=== PATIENT | male | born 1955 | race Caucasian/White ===

== ENCOUNTER 2018-05-05 12:00 | Inpatient (IN) | payer OTHER ==
[2018-05-04 12:20] VITALS: BMI 36.6
[2018-05-07] MEDS ORDERED: ceFAZolin SODIUM 1 GM VIAL ONE ×3 (07:36→08:57)
[2018-05-07] MEDS ORDERED: LIDOCAINE 1%/EPI 1:100000 (20 ML MULTI DOSE VIAL) ONE (07:36)
[2018-05-07] MEDS ORDERED: GENTAMICIN SO4 80 MG/2 ML VIAL ONE (07:36)
[2018-05-07] MEDS ORDERED: BUPIVACAINE HCL/PF 0.5% (5MG/ML) 10 ML VIAL ONE (07:37)
[2018-05-07] MEDS ORDERED: THROMBIN (BOVINE) 20,000 UNIT VIAL TP ONE ×2 (07:37→10:58)
[2018-05-07] MEDS ORDERED: morphine SULFATE/Preservative Free 0.5 MG/ML (1cc Syringe) ONE (07:40)
[2018-05-07] MEDS ORDERED: VANCOMYCIN 1,000 MG VIAL (RESTRICTED TO ID ONLY) ONE ×2 (07:47→09:00)
[2018-05-07] MEDS ORDERED: MIDAZOLAM HCL 2 MG/2 ML SINGLE DOSE VIAL ONE (07:49)
[2018-05-07] MEDS ORDERED: PROPOFOL 20 ML ONE ×2 (07:49→11:28)
[2018-05-07] MEDS ORDERED: ROCURONIUM BROMIDE 50 MG/5 ML VIAL ONE ×2 (07:49→09:15)
[2018-05-07] MEDS ORDERED: CEFAZOLIN 2 GM in DEXTROSE 5%-WATER - 100 ML IVPB ONE (07:50)
[2018-05-07] MEDS ORDERED: LIDOCAINE HCL/PF 2% SDV 5ML VIAL ONE (07:57)
[2018-05-07] MEDS ORDERED: PROMETHAZINE HCL 25 MG/1 ML VIAL IVPB PRN (08:11)
[2018-05-07] MEDS ORDERED: DEXAMETHASONE SOD PHOSPHATE 4 MG/1 ML VIAL IVPUSH PRN (08:11)
[2018-05-07] MEDS ORDERED: ONDANSETRON 4 MG/2 ML VIAL IVPUSH PRN ×2 (08:11→12:37)
--- NOTE | 2018-05-07 08:14 | HP ---
History & Physical Update - History History: No Change - Physical Physical: No Change - Assessment Assessment: No Change - Plan Plan: No Change (H&P completed on 04/24/[address] Meenu Owens. No new medications or complaints since. Here today for elective L3-5 PLIF.)
[2018-05-07] MEDS ORDERED: LACTATED RINGERS SOLUTION 1,000 ML IV SCH (08:15)
[2018-05-07] MEDS ORDERED: GLYCOPYRROLATE 0.2 MG/1 ML VIAL ONE ×2 (08:37→11:13)
[2018-05-07] MEDS ORDERED: SODIUM CHLORIDE 0.9% P/F 10 ML VIAL IJ ONE (08:57)
[2018-05-07] MEDS ORDERED: ceFAZolin SODIUM 1 GM VIAL IVPB ONE (08:59)
[2018-05-07] MEDS ORDERED: BUPIVACAINE LIPOSOME/PF (EXPAREL) 266 MG/20 ML VIAL NR ONE ×3 (09:00→09:34)
[2018-05-07] MEDS ORDERED: VANCOMYCIN 1,000 MG VIAL (RESTRICTED TO ID ONLY) IVPB ONE (09:02)
[2018-05-07] MEDS ORDERED: LIDOCAINE 1%/EPI 1:100000 (50 ML MULTI DOSE VIAL) NR ONE (09:34)
[2018-05-07] MEDS ORDERED: BUPIVACAINE HCL/PF 0.5% (5MG/ML) 10 ML VIAL IJ ONE (09:34)
[2018-05-07] MEDS ORDERED: THROMBIN (BOVINE) 5,000 UNIT VIAL TP ONE ×2 (09:36)
[2018-05-07] MEDS ORDERED: GELATIN, ABSORBABLE 12-7MM EACH SPONGE TP ONE (11:06)
[2018-05-07] MEDS ORDERED: NEOSTIGMINE METHYLSULFATE 0.5 MG/1 ML - 10 ML MDV ONE (11:14)
[2018-05-07] MEDS ORDERED: ONDANSETRON 4 MG/2 ML VIAL ONE (11:57)
[2018-05-07] MEDS ORDERED: DEXAMETHASONE SOD PHOSPHATE 4 MG/1 ML VIAL ONE (11:57)
[2018-05-07] MEDS ORDERED: diphenhydrAMINE HCL 25 MG CAPSULE (FP) PO PRN (12:37)
[2018-05-07] MEDS ORDERED: LACTATED RINGERS SOLUTION 1,000 ML/1,000 ML INFUS.BAG IV SCH (12:45)
[2018-05-07] MEDS ORDERED: LACTATED RINGERS SOLUTION 1000 ML INFUS.BAG IV ONE (13:15)
[2018-05-07] MEDS ORDERED: HYDROmorphone *PCA* 10MG/50ML DISP.SYRIN PCA ONE (13:24)
[2018-05-07] MEDS: HYDROmorphone *PCA* 10MG/50ML DISP.SYRIN PCA SCH (13:30)
--- NOTE | 2018-05-07 15:30 | OP ---
Operative Note - Note: Operative Date: 05/07/18 Pre-Operative Diagnosis: Chronic low back pain with radiculopathy Operation: L3-L5 laminectomies and interbody cage, arthrodesis with L3-L5 pedicle screws Post-Operative Diagnosis: Same as Pre-op Surgeon: Nikos Watson Time Motion Analyst: Terry Titus Anesthesiologist/REBAR BENDER: Jerrell Emmanuel Anesthesia: General Specimens Removed: Left L3/4, L4/5 discs Estimated Blood Loss (mls): 400 Drains, Volume Out (mls): 200 (fenton/clear) Fluid Volume Replaced (mls): 2,000 Operative Report Dictated: Yes
--- NOTE | 2018-05-07 15:33 | SURG ---
Surgery Repairer Sash And Door Note Repairer Sash And Door: Terry Titus PA-C Date of Service: 05/07/18 Diagnosis: Chronic low back pain with radiculopathy Procedure: L3-L5 laminectomies and interbody cage, arthrodesis with L3-L5 pedicle screws I was present for the entirety of the operative procedure. For further detail, please refer to operative report. Visit type - Case Type Case Type: Scheduled - New patient This patient is new to me today: Yes Date on this admission: 05/07/18
--- NOTE | 2018-05-07 17:28 | PN ---
Physical Exam: SUBJECTIVE: Patient seen and examined in PACU this afternoon. Pain is well controlled with WOUND CARE NURSE. Hasn't passed flatus. Denies numbness, or tingling, chest pain, sob, cough, palpitation, abdominal pain,nausea or vomiting. Fenton in place. Requesting to d/c fenton, wants to stand and stretch. OBJECTIVE: Vital Signs Period Temp Pulse Resp BP Sys/Maldonado Pulse Ox Last 24 Hr 97.0 F-98.7 F 48-72 14-20 75-120/35-75 95-99 GENERAL: Middle aged male, sitting in bed, patient is awake, alert, and fully oriented, in no acute distress. HEAD: Normal with no signs of trauma. EYES: EOM intact, no pallor or icterus. ENT: Ears normal, moist mucous membranes. NECK: Supple. LUNGS: Breath sounds equal, clear to auscultation bilaterally, no wheezes, no crackles, no accessory muscle use. HEART: Regular rate and rhythm, S1, S2 without murmur. ABDOMEN: Soft, nontender, no organomegaly. MUSCULOSKLETAL: dressing applied over the surgical site, THAD drain in place. EXTREMITIES: 2+ pulses, warm, well-perfused, no edema. NEUROLOGICAL: No facial droop. Normal speech, gait not observed. PSYCH: Normal mood, normal affect. SKIN: Warm, dry, normal turgor, no rashes or lesions noted Laboratory Results - last 24 hr 05/07/18 05/07/18 06:45 06:53 Blood Type A POSITIVE A POSITIVE Antibody Screen Negative Active Medications Generic Name Dose Route Start Last Admin Trade Name Freq PRN Reason Stop Dose Admin Amlodipine Besylate 10 mg 05/08/18 10:00 Norvasc - PO DAILY N[facility] Atenolol 50 mg 05/08/18 10:00 Tenormin - PO DAILY [facility] Atorvastatin Calcium 20 mg 05/07/18 22:00 Lipitor - PO HS [facility] Dexamethasone Sodium Phosphate 4 mg 05/07/18 08:11 Decadron Injection - IVPUSH ONCE PRN NAUSEA AND/OR VOMITING Diphenhydramine HCl 12.5 mg 05/07/18 08:11 Benadryl Injection - IVPUSH ONCE PRN FOR ITCHING Diphenhydramine HCl 25 mg 05/07/18 12:37 Benadryl - PO Q6H PRN FOR ITCHING Docusate Sodium 100 mg 05/07/18 14:00 Colace - PO TID [facility] Fentanyl 50 mcg 05/07/18 08:11 Sublimaze Injection - IVPUSH [id number] PRN PAIN-PACU ORDER X 4 DOSES ONLY Ferrous Sulfate 325 mg 05/08/18 10:00 Feosol - PO DAILY [facility] Folic Acid 1 mg 05/08/18 10:00 Folic Acid - PO DAILY [facility] Heparin Sodium (Porcine) 5,000 unit 05/07/18 14:00 Heparin - SQ TID [facility] Hydromorphone HCl 0 mg 05/07/18 08:15 05/07/18 13:30 Dilaudid Application Integration Specialist - WOUND CARE NURSE 05/14/18 08:11 10 mg WOUND CARE NURSE [facility] Administration Protocol Cefazolin Sodium 1 gm/ 50 mls @ 100 mls/hr 05/07/18 18:00 Dextrose IVPB Q8H-IV [facility] Lactated Ringer's 1,000 ml in 1,000 mls @ 125 mls/hr 05/07/18 12:45 Lactated Ringers Solution IV ASDIR [facility] Losartan Potassium 25 mg 05/08/18 10:00 Cozaar - PO DAILY [facility] Mesalamine 1,600 mg 05/07/18 14:00 Asacol Hd - PO TID [facility] Ondansetron HCl 4 mg 05/07/18 08:11 Zofran Injection IVPUSH 05/08/18 13:00 Q4H PRN NAUSEA AND/OR VOMITING Ondansetron HCl 4 mg 05/07/18 12:37 Zofran Injection IVPUSH 05/08/18 12:36 Q6H PRN NAUSEA Pantoprazole Sodium 20 mg 05/07/18 22:00 Protonix - PO BID [facility] Promethazine HCl 12.5 mg 05/07/18 08:11 Phenergan Injection - IVPB Q6H PRN NAUSEA AND/OR VOMITING Sertraline HCl 100 mg 05/08/18 10:00 Zoloft - PO DAILY [facility] ASSESSMENT/PLAN: Patient is a 62 year old male presented to the hospital for an Elective surgery. # Chronic back pain with radiculopathy s/p L3-L5 laminectomies and interbody cage, arthrodesis with L3-L5 pedicle screws POD 0 Surgery uncomplicated, pain tolerated well with WOUND CARE NURSE. EBL 400. Fluid vol replaced 2000 mls Vitas are stable Empirically treated with IV Cefazolin post surgery Fenton continue Heparin sq Clears # HTN Continue Amlodipine 10 mg PO Daily # HLD Continue Atorvastatin 20 mg HS # FEN Can tolerate PO Electrolytes to be repeated in AM Clears # Prophylaxis For DVT: On heparin sq For GI: Not indicated # Code Status: Full Code Illness, Investigation and plan of care explained to the patient. He verbalized understanding. Case discussed with Dr. Paez. Visit type - Emergency Visit Emergency Visit: Yes ED Registration Date: 05/07/18 Care time: The patient presented to the Emergency Department on the above date and was hospitalized for further evaluation of their emergent condition. - New Patient This patient is new to me today: Yes Date on this admission: 05/07/18 - Critical Care Critical Care patient: No
[2018-05-07] MEDS ORDERED: CEFAZOLIN 1 GM in DEXTROSE 5%-WATER - 50 ML IVPB SCH (18:00)
--- NOTE | 2018-05-07 18:11 | PN ---
Teaching Attending Note Name of Resident: Annemarie Lee ATTENDING PHYSICIAN STATEMENT I saw and evaluated the patient. I reviewed the resident's note and discussed the case with the resident. I agree with the resident's findings and plan as documented. SUBJECTIVE: Patient reports back pain controlled with MATHEMATICS EDUCATION PROFESSOR. OBJECTIVE: Vital Signs Period Temp Pulse Resp BP Sys/Maldonado Pulse Ox Last 24 Hr 97.0 F-98.8 F 48-72 14-20 75-130/35-92 95-99 HEART: S1S2, RRR LUNGS: Clear ABDOMEN: Obese, soft, non-tender, non-distended, normal BS EXTREMITIES: No edema Laboratory Results - last 24 hr 05/07/18 05/07/18 06:45 06:53 Blood Type A POSITIVE A POSITIVE Antibody Screen Negative Current Medications Generic Name Dose Route Start Last Admin Trade Name Freq PRN Reason Stop Dose Admin Amlodipine Besylate 10 mg 05/08/18 10:00 Norvasc - PO DAILY [facility] Atenolol 50 mg 05/08/18 10:00 Tenormin - PO DAILY [facility] Atorvastatin Calcium 20 mg 05/07/18 22:00 Lipitor - PO HS [facility] Dexamethasone Sodium Phosphate 4 mg 05/07/18 08:11 Decadron Injection - IVPUSH ONCE PRN NAUSEA AND/OR VOMITING Diphenhydramine HCl 12.5 mg 05/07/18 08:11 Benadryl Injection - IVPUSH ONCE PRN FOR ITCHING Diphenhydramine HCl 25 mg 05/07/18 12:37 Benadryl - PO Q6H PRN FOR ITCHING Docusate Sodium 100 mg 05/07/18 14:00 Colace - PO TID [facility] Fentanyl 50 mcg 05/07/18 08:11 Sublimaze Injection - IVPUSH [id number] PRN PAIN-PACU ORDER X 4 DOSES ONLY Ferrous Sulfate 325 mg 05/08/18 10:00 Feosol - PO DAILY [facility] Folic Acid 1 mg 05/08/18 10:00 Folic Acid - PO DAILY [facility] Heparin Sodium (Porcine) 5,000 unit 05/07/18 14:00 Heparin - SQ TID [facility] Hydromorphone HCl 0 mg 05/07/18 08:15 05/07/18 13:30 Dilaudid Coupon And Bond Collection Clerk - MATHEMATICS EDUCATION PROFESSOR 05/14/18 08:11 10 mg MATHEMATICS EDUCATION PROFESSOR [facility] Administration Protocol Cefazolin Sodium 1 gm/ 50 mls @ 100 mls/hr 05/07/18 18:00 Dextrose IVPB Q8H-IV [facility] Losartan Potassium 25 mg 05/08/18 10:00 Cozaar - PO DAILY [facility] Mesalamine 1,600 mg 05/07/18 14:00 Asacol Hd - PO TID [facility] Ondansetron HCl 4 mg 05/07/18 08:11 Zofran Injection IVPUSH 05/08/18 13:00 Q4H PRN NAUSEA AND/OR VOMITING Ondansetron HCl 4 mg 05/07/18 12:37 Zofran Injection IVPUSH 05/08/18 12:36 Q6H PRN NAUSEA Pantoprazole Sodium 20 mg 05/07/18 22:00 Protonix - PO BID [facility] Promethazine HCl 12.5 mg 05/07/18 08:11 Phenergan Injection - IVPB Q6H PRN NAUSEA AND/OR VOMITING Sertraline HCl 100 mg 05/08/18 10:00 Zoloft - PO DAILY [facility] ASSESSMENT AND PLAN: This is a 62 year old man with a history of HTN, hyperlipidemia who underwent lumbar spine surgery for radiculopathy. 1. Chronic low back pain with radiculopathy - s/p L3-L5 laminectomies and interbody cage, arthrodesis with L3-L5 pedicle screws today - Tolerating clear liquid diet - Pain controlled 2. HTN - Continue Norvasc, Atenolol, Cozaar 3. Hyperlipidemia - Continue Lipitor
--- NOTE | 2018-05-07 18:28 | CONSULT ---
Consultation: ICU consult REQUESTING PROVIDER:Dr Duran Neurosurgery CONSULT REQUEST: We have been asked to medically evaluate this patient for ( post op monitor ). HISTORY OF PRESENT ILLNESS: 62 year old male presented for elective low back surgery L3-L5 , performed By Dr Jessica Duran, pt has along history of low [place] pain radiated to his buttocs and lower ext POD #0 , complain of discofort in surgery sight , denies nay fever, chills, N/V/D/C denies any chest pain , sob, abdominal pain , urinary symptoms did not pass flatus yet on CORE STACKER for pain per surgery team REVIEW OF SYSTEMS: CONSTITUTIONAL: Absent: fever, chills, diaphoresis, generalized weakness, malaise, loss of appetite, weight change HEENT: Absent: rhinorrhea, nasal congestion, throat pain, throat swelling, difficulty swallowing, mouth swelling, ear pain, eye pain, visual changes CARDIOVASCULAR: Absent: chest pain, syncope, palpitations, irregular heart rate, lightheadedness , peripheral edema RESPIRATORY: Absent: cough, shortness of breath, dyspnea with exertion, orthopnea, wheezing, stridor, hemoptysis GASTROINTESTINAL: Absent: abdominal pain, abdominal distension, nausea, vomiting, diarrhea, constipation, melena, hematochezia GENITOURINARY: Absent: dysuria, frequency, urgency, hesitancy, hematuria, flank pain, genital pain MUSCULOSKELETAL: Absent: myalgia, arthralgia, joint swelling, back pain, neck pain SKIN: Absent: rash, itching, pallor HEMATOLOGIC/IMMUNOLOGIC: Absent: easy bleeding, easy bruising, lymphadenopathy, frequent infections ENDOCRINE: Absent: unexplained weight gain, unexplained weight loss, heat intolerance, cold intolerance NEUROLOGIC: Absent: headache, focal weakness or paresthesias, dizziness, unsteady gait, seizure, mental status changes, bladder or bowel incontinence PSYCHIATRIC: Absent: anxiety, depression, suicidal or homicidal ideation, hallucinations. PHYSICAL EXAMINATION Vital Signs - 24 hr 05/07/18 05/07/18 05/07/18 07:03 12:18 12:30 Temperature 97.0 F L 98.7 F Pulse Rate 48 L 69 64 Respiratory 20 14 18 Rate Blood Pressure 120/75 94/35 L 75/43 L O2 Sat by Pulse 97 97 95 Oximetry (%) 12/20/18 12/20/18 12/20/18 12:45 13:00 13:15 Temperature Pulse Rate 62 59 L 58 L Respiratory 16 18 16 Rate Blood Pressure 78/43 L 84/53 L 89/60 L O2 Sat by Pulse 96 98 98 Oximetry (%) 05/07/18 05/07/18 05/07/18 13:30 13:45 14:00 Temperature Pulse Rate 59 L 56 L 55 L Respiratory 18 16 16 Rate Blood Pressure 104/65 102/65 103/60 O2 Sat by Pulse 99 98 98 Oximetry (%) 05/07/18 05/07/18 05/07/18 14:15 14:30 14:45 Temperature Pulse Rate 55 L 55 L 58 L Respiratory 16 16 18 Rate Blood Pressure 106/59 L 102/63 103/55 L O2 Sat by Pulse 98 99 98 Oximetry (%) 05/07/18 05/07/18 05/07/18 15:30 16:00 16:30 Temperature Pulse Rate 72 58 L 58 L Respiratory 14 16 16 Rate Blood Pressure 104/69 109/71 116/72 O2 Sat by Pulse 98 98 98 Oximetry (%) 05/07/18 05/07/18 05/07/18 17:40 17:50 18:02 Temperature 98.8 F 98.8 F Pulse Rate 59 L 61 Respiratory 18 20 Rate Blood Pressure 130/92 104/76 O2 Sat by Pulse 98 98 Oximetry (%) GENERAL: Awake, alert, and fully oriented, in no acute distress. HEAD: Normal with no signs of trauma. EYES: Pupils equal, round and reactive to light, extraocular movements intact, NECK: Normal range of motion, supple LUNGS: Breath sounds equal, clear to auscultation bilaterally. No wheezes, and no crackles. HEART: Regular rate and rhythm, normal S1 and S2 without murmur, rub or gallop. ABDOMEN: Soft, nontender, not distended, normoactive bowel sounds, no guarding, no rebound, MUSCULOSKELETAL: Normal range of motion at all joints. No CVA tenderness.lower back surgey sight sealed and covered with gauze UPPER EXTREMITIES: 2+ pulses, warm, well-perfused. No cyanosis. No clubbing. Cap refill <2 seconds. No peripheral edema. LOWER EXTREMITIES: 2+ pulses, warm, well-perfused. No calf tenderness. No peripheral edema. NEUROLOGICAL: Cranial nerves II-XII intact. Normal speech. PSYCHIATRIC: Cooperative. Good eye contact. Appropriate mood and affect. SKIN: Warm, dry, normal turgor, Laboratory Results - last 24 hr 05/07/18 05/07/18 06:45 06:53 Blood Type A POSITIVE A POSITIVE Antibody Screen Negative Active Medications Generic Name Dose Route Start Last Admin Trade Name Freq PRN Reason Stop Dose Admin Amlodipine Besylate 10 mg 05/08/18 10:00 Norvasc - PO DAILY [facility] Atenolol 50 mg 05/08/18 10:00 Tenormin - PO DAILY [facility] Atorvastatin Calcium 20 mg 05/07/18 22:00 Lipitor - PO HS [facility] Dexamethasone Sodium Phosphate 4 mg 05/07/18 08:11 Decadron Injection - IVPUSH ONCE PRN NAUSEA AND/OR VOMITING Diphenhydramine HCl 12.5 mg 05/07/18 08:11 Benadryl Injection - IVPUSH ONCE PRN FOR ITCHING Diphenhydramine HCl 25 mg 05/07/18 12:37 Benadryl - PO Q6H PRN FOR ITCHING Docusate Sodium 100 mg 05/07/18 14:00 Colace - PO TID [facility] Fentanyl 50 mcg 05/07/18 08:11 Sublimaze Injection - IVPUSH [id number] PRN PAIN-PACU ORDER X 4 DOSES ONLY Ferrous Sulfate 325 mg 05/08/18 10:00 Feosol - PO DAILY [facility] Folic Acid 1 mg 05/08/18 10:00 Folic Acid - PO DAILY [facility] Heparin Sodium (Porcine) 5,000 unit 05/07/18 14:00 Heparin - SQ TID [facility] Hydromorphone HCl 0 mg 05/07/18 08:15 05/07/18 13:30 Dilaudid Broom Builder - CORE STACKER 05/14/18 08:11 10 mg CORE STACKER [facility] Administration Protocol Cefazolin Sodium 1 gm/ 50 mls @ 100 mls/hr 05/07/18 18:00 Dextrose IVPB Q8H-IV [facility] Losartan Potassium 25 mg 05/08/18 10:00 Cozaar - PO DAILY [facility] Mesalamine 1,600 mg 05/07/18 14:00 Asacol Hd - PO TID [facility] Ondansetron HCl 4 mg 05/07/18 08:11 Zofran Injection IVPUSH 05/08/18 13:00 Q4H PRN NAUSEA AND/OR VOMITING Ondansetron HCl 4 mg 05/07/18 12:37 Zofran Injection IVPUSH 05/08/18 12:36 Q6H PRN NAUSEA Pantoprazole Sodium 20 mg 05/07/18 22:00 Protonix - PO BID [facility] Promethazine HCl 12.5 mg 05/07/18 08:11 Phenergan Injection - IVPB Q6H PRN NAUSEA AND/OR VOMITING Sertraline HCl 100 mg 05/08/18 10:00 Zoloft - PO DAILY [facility] ASSESSMENT/PLAN: 62 year old male with h/o HTN , HLD, chronic back pain presented to hospital for elective surgery due to chronic back pain with radiculopathy. #Neuro #Chronic back pain with radiculopathy s/p L3-L5 laminectomies and interbody cage , arthrodesis with L3-L5 pedicle screws * POD# 0 * AAOx3 in NAD * mild discofort in surgey sight * pain control CORE STACKER dilauded on demand * IV fluids D5 1/2 NS * clear liquids * Incentive spirometry * PT * bed rest, early ambulation * monitor drainage * monitor for fever, wbc , H/H * DVTS: SCDS , hep sc Q 8hr * NO GI proph * resume home emds for HTN , HLD, * full code * empiric abx ampicillin one dose * Thank you for the consult * will monitor in ICU 24 [facility] PGY 2 Dispo: We will continue to follow the patient. Thank you for this consultative opportunity. Visit type - Emergency Visit Emergency Visit: No - New Patient This patient is new to me today: Yes Date on this admission: 05/07/18 - Critical Care Critical Care patient: Yes Total Critical Care Time (in minutes): 45 Critical Care Statement: The care of this patient involved high complexity decision making to prevent further life threatening deterioration of the patient 's condition and/or to evaluate & treat vital organ system(s) failure or risk of failure.
[2018-05-07] MEDS ORDERED: DEXTROSE 5%-0.45% SALINE 1,000 ML IV SCH (18:30)
[2018-05-07] MEDS: CEFAZOLIN 1 GM/D5W 1 GM/50 ML BAG IVPB SCH (18:45)
[2018-05-07] MEDS: MESALAMINE 800 MG TABLET.DR PO SCH ×2 (19:44→21:51)
[2018-05-07] MEDS: DOCUSATE SODIUM 100 MG CAPSULE (FP) PO SCH ×2 (19:44→21:40)
[2018-05-07] MEDS: ATORVASTATIN CA 20 MG TABLET (FP) PO SCH (21:41)
[2018-05-07] MEDS: PANTOPRAZOLE 20 MG TABLET (FP) PO SCH (21:42)
[2018-05-07] MEDS: HEPARIN NA (PORCINE) 5,000 UNITS/ML 1ML VIAL SQ SCH ×2 (21:45)
[2018-05-08] MEDS: CEFAZOLIN 1 GM/D5W 1 GM/50 ML BAG IVPB SCH ×3 (01:05→17:43)
[2018-05-08] MEDS ORDERED: HYDROmorphone *PCA* 10MG/50ML DISP.SYRIN PCA ONE ×3 (04:34→21:53)
[2018-05-08] MEDS: HYDROmorphone *PCA* 10MG/50ML DISP.SYRIN PCA SCH ×2 (04:48→14:10)
[2018-05-08] MEDS: MESALAMINE 800 MG TABLET.DR PO SCH ×3 (06:13→21:37)
[2018-05-08] MEDS: HEPARIN NA (PORCINE) 5,000 UNITS/ML 1ML VIAL SQ SCH ×3 (06:14→21:37)
[2018-05-08] MEDS: DOCUSATE SODIUM 100 MG CAPSULE (FP) PO SCH ×3 (06:14→21:38)
[2018-05-08 06:29] LABS: HEMATOCRIT 35.8 % (35.4-49); HEMOGLOBIN 11.7 GM/dL (11.7-16.9); MCHC 32.8 g/dl (32.0-35.9); MEAN CELL VOLUME 91.4 fl (80-96); MEAN PLT VOLUME 7.9 fl (7.5-11.1); PLATELET COUNT 251 K/MM3 (134-434); RBC 3.91 M/mm3 (4.00-5.60); RDW 14.8 % (11.9-15.9); WHITE BLOOD COUNT 10.4 K/mm3 (4.0-10.0)
[2018-05-08 07:06] LABS: ANION GAP 10 MMOL/L (8-16); BLOOD UREA NITROGEN 19 mg/dL (7-18); CALCIUM 8.8 mg/dL (8.5-10.1); CHLORIDE 100 mmol/L (98-107); CO2 22 mmol/L (21-32); CREATININE 1.1 mg/dL (0.55-1.3); GLUCOSE,RANDOM 107 mg/dL (74-106); POTASSIUM 4.7 mmol/L (3.5-5.1); SODIUM 132 mmol/L (136-145)
[2018-05-08] MEDS ORDERED: ACETAMINOPHEN 1000 MG/100 ML VIAL (NON FORMULARY) IVPB PRN ×2 (08:19→08:30)
--- NOTE | 2018-05-08 08:24 | PN ---
Progress Note (short form) - Note Progress Note: POD#1 Pt having pain in his incision/buttock area. No numbness or tingling to lower extremities. No, CP/SOB or nausea. No headaches. Vital Signs Period Temp Pulse Resp BP Sys/Maldonado Pulse Ox Last 24 Hr 97.9 F-98.8 F 55-82 14-20 75-132/35-92 95-99 THAD: 300ml-serosangrenous UOP: 1200ml yellow urine GEN: A&0x3, NAD ABD: soft, non-distended, non-tender Back: inc c/d/i with aquacel Neuro: 5/5dorsi/plantar flexion EHL. +2 DP pulses b/l CBC, BMP /21/18 05:30 //18 05:30 A/p: 62 yo male s/p L3-L5 laminectomies and interbody cage, arthrodesis with L3 -L5 pedicle screws Advanced diet to regular OOB with TLSO brace Continue THAD to bulb suction FLIGHT OPERATIONS COORDINATOR for pain medications, wean as per anesthesia DVT ppx with heparin SQ and SCDs D/w Dr. Mims/covering for
--- NOTE | 2018-05-08 08:27 | PN ---
Progress Note (short form) - Note Progress Note: Post op day#1.S/p L3-L5 Decompression with fusion and interbody cage placement under Ga with spinal duramorph and TLIP block by the surgeon uneventful.P75,BP 120/91 and Spo2 97% on O2 2L NC.Patient stable and c/o pain score of 8-9/10 on Dilaudid VAMP PRESSER although he was sleeping when i saw him.Will continue VAMP PRESSER and also add Ofirmev and Neurontin.Patient also c/o hiccough so will add Reglan ivpb.Will f/u tomorrow.
[2018-05-08] MEDS: METOCLOPRAMIDE HCL INJECTION 10 MG/2 ML VIAL IVPUSH PRN ×2 (08:34→18:46)
[2018-05-08] MEDS ORDERED: RANITIDINE HCL 150 MG TABLET (FP) PO ONE (08:45)
[2018-05-08] MEDS: PANTOPRAZOLE 20 MG TABLET (FP) PO SCH ×2 (09:44→21:37)
[2018-05-08] MEDS: GABAPENTIN 400 MG CAPSULE (FP) PO SCH ×2 (09:44→21:38)
[2018-05-08] MEDS: amLODIPine BESYLATE 10 MG TABLET (FP) PO SCH (09:44)
[2018-05-08] MEDS: ATENOLOL 50 MG TABLET (FP) PO SCH (09:44)
[2018-05-08] MEDS: LOSARTAN POTASSIUM 25 MG TABLET PO SCH (09:44)
[2018-05-08] MEDS: FERROUS SO4 325 MG TABLET (FP) PO SCH (09:44)
[2018-05-08] MEDS: SERTRALINE HCL 50 MG TABLET (FP) PO SCH (09:44)
[2018-05-08] MEDS: FOLIC ACID 1 MG TABLET (FP) PO SCH (09:44)
--- NOTE | 2018-05-08 12:48 | PN ---
Teaching Attending Note Name of Resident: Jon Frederick ATTENDING PHYSICIAN STATEMENT I saw and evaluated the patient. I reviewed the resident's note and discussed the case with the resident. I agree with the resident's findings and plan as documented. SUBJECTIVE: Patient seen and examined in the ICU. Ambulating with PT. Pain seems adequately controlled. No CP or SOB. Intake & Output 05/05/18 05/06/18 05/07/18 05/08/18 23:59 23:59 23:59 23:59 Intake Total 5920 Output Total 1850 1250 Balance 4070 -1250 Last Vital Signs Temp Pulse Resp BP Pulse Ox 98 F 82 18 142/82 98 05/08/18 10:00 05/08/18 10:00 05/08/18 10:00 05/08/18 10:00 05/08/18 09:00 Active Medications Acetaminophen (Ofirmev Injection -) 1,000 mg IVPB Q6H PRN PRN Reason: PAIN LEVEL 7 - 10 Amlodipine Besylate (Norvasc -) 10 mg PO DAILY [facility] Last Admin: 05/08/18 09:44 Dose: 10 mg Atenolol (Tenormin -) 50 mg PO DAILY [facility] Last Admin: 05/08/18 09:44 Dose: 50 mg Atorvastatin Calcium (Lipitor -) 20 mg PO HS [facility] Last Admin: 05/07/18 21:41 Dose: 20 mg Dexamethasone Sodium Phosphate (Decadron Injection -) 4 mg IVPUSH ONCE PRN PRN Reason: NAUSEA AND/OR VOMITING Diphenhydramine HCl (Benadryl Injection -) 12.5 mg IVPUSH ONCE PRN PRN Reason: FOR ITCHING Diphenhydramine HCl (Benadryl -) 25 mg PO Q6H PRN PRN Reason: FOR ITCHING Docusate Sodium (Colace -) 100 mg PO TID [facility] Last Admin: 05/08/18 06:14 Dose: 100 mg Ferrous Sulfate (Feosol -) 325 mg PO DAILY [facility] Last Admin: 05/08/18 09:44 Dose: 325 mg Folic Acid (Folic Acid -) 1 mg PO DAILY [facility] Last Admin: 05/08/18 09:44 Dose: 1 mg Gabapentin (Neurontin -) 400 mg PO BID [facility] Last Admin: 05/08/18 09:44 Dose: 400 mg Heparin Sodium (Porcine) (Heparin -) 5,000 unit SQ TID [facility] Last Admin: 05/08/18 06:14 Dose: 5,000 unit Hydromorphone HCl (Dilaudid Nuclear Plant Operator -) 0 mg SYSTEMS INTEGRATION MANAGER SYSTEMS INTEGRATION MANAGER [facility]; Protocol Stop: 05/14/18 08:11 Last Admin: 05/08/18 04:48 Dose: 10 mg Cefazolin Sodium (Ancef 1 Gm Premixed Ivpb -) 1 gm in 50 mls @ 100 mls/hr IVPB Q8H-IV [facility] Last Admin: 05/08/18 09:35 Dose: 100 mls/hr Losartan Potassium (Cozaar -) 25 mg PO DAILY [facility] Last Admin: 05/08/18 09:44 Dose: 25 mg Mesalamine (Asacol Hd -) 1,600 mg PO TID [facility] Last Admin: 05/08/18 06:13 Dose: 1,600 mg Metoclopramide HCl (Reglan Injection -) 10 mg IVPUSH Q8H PRN PRN Reason: NAUSEA AND/OR VOMITING Last Admin: 05/08/18 08:34 Dose: 10 mg Ondansetron HCl (Zofran Injection) 4 mg IVPUSH Q4H PRN PRN Reason: NAUSEA AND/OR VOMITING Stop: 05/08/18 13:00 Pantoprazole Sodium (Protonix -) 20 mg PO BID [facility] Last Admin: 05/08/18 09:44 Dose: 20 mg Promethazine HCl (Phenergan Injection -) 12.5 mg IVPB Q6H PRN PRN Reason: NAUSEA AND/OR VOMITING Sertraline HCl (Zoloft -) 100 mg PO DAILY [facility] Last Admin: 05/08/18 09:44 Dose: 100 mg GENERAL: Awake, alert, and fully oriented, no acute distress. HEAD: Normal with no signs of trauma. EYES: Pupils equal, round and reactive to light, extraocular movements intact, NECK: Normal range of motion, supple LUNGS: Breath sounds equal, clear to auscultation bilaterally. No wheezes, and no crackles. HEART: Regular rate and rhythm, normal S1 and S2 without murmur, rub or gallop. ABDOMEN: Soft, nontender, not distended, normoactive bowel sounds, no guarding, no rebound, MUSCULOSKELETAL: surgical sight covered with gauze UPPER EXTREMITIES: 2+ pulses, warm, well-perfused. No cyanosis. No clubbing. Cap refill <2 seconds. No peripheral edema. LOWER EXTREMITIES: 2+ pulses, warm, well-perfused. No calf tenderness. No peripheral edema. NEUROLOGICAL: Non-focal PSYCHIATRIC: Cooperative. Good eye contact. Appropriate mood and affect. SKIN: Warm, dry, normal turgor Laboratory Results - last 24 hr 05/08/18 05/08/18 05:30 05:30 WBC 10.4 H RBC 3.91 L Hgb 11.7 Hct 35.8 MCV 91.4 MCH 30.0 MCHC 32.8 RDW 14.8 Plt Count 251 MPV 7.9 Sodium 132 L Potassium 4.7 Chloride 100 Carbon Dioxide 22 Anion Gap 10 BUN 19 H Creatinine 1.1 Creat Clearance w eGFR > 60 Random Glucose 107 H Calcium 8.8 ASSESSMENT/PLAN: POD #1: S/P L3-L5 laminectomies and interbody cage, arthrodesis with L3-L5 pedicle screws Chronic LBP HTN HPL PT O2 as needed Incentive Spirometry PO with flatus Follow I & O SCDs VTE prophylaxis Dr Ramon
--- NOTE | 2018-05-08 14:15 | PN ---
Physical Exam: SUBJECTIVE: Patient seen and examined at bedside. Resting comfortably, pain at surgical site. Urinating well, has passed flatus, no BM as yet. OBJECTIVE: Vital Signs Period Temp Pulse Resp BP Sys/Maldonado Pulse Ox Last 24 Hr 97.9 F-98.8 F 55-82 14-20 102-142/55-92 98-99 GENERAL: A&Ox3, NAD HEAD: NC/AT EYES: PERRLA, EOMI ENT: MMM NECK: Trachea midline, full range of motion, supple. LUNGS: CTA b/l HEART: RRR no m/r/g ABDOMEN: +bs, soft, NT, ND EXTREMITIES: 2+ pulses, warm, well-perfused, no edema. NEUROLOGICAL: freezing room worker, motor, sensory systems without focal deficit PSYCH: Normal mood, normal affect. SKIN: Warm, dry, normal turgor, no rashes or lesions noted Laboratory Results - last 24 hr 05/08/18 05/08/18 05:30 05:30 WBC 10.4 H RBC 3.91 L Hgb 11.7 Hct 35.8 MCV 91.4 MCH 30.0 MCHC 32.8 RDW 14.8 Plt Count 251 MPV 7.9 Sodium 132 L Potassium 4.7 Chloride 100 Carbon Dioxide 22 Anion Gap 10 BUN 19 H Creatinine 1.1 Creat Clearance w eGFR > 60 Random Glucose 107 H Calcium 8.8 Active Medications Generic Name Dose Route Start Last Admin Trade Name Freq PRN Reason Stop Dose Admin Acetaminophen 1,000 mg 05/08/18 08:30 Ofirmev Injection - IVPB Q6H PRN PAIN LEVEL 7 - 10 Amlodipine Besylate 10 mg 05/08/18 10:00 05/08/18 09:44 Norvasc - PO 10 mg DAILY NORY Administration Atenolol 50 mg 05/08/18 10:00 05/08/18 09:44 Tenormin - PO 50 mg DAILY NORY Administration Atorvastatin Calcium 20 mg 05/07/18 22:00 05/07/18 21:41 Lipitor - PO 20 mg HS NORY Administration Dexamethasone Sodium Phosphate 4 mg 05/07/18 08:11 Decadron Injection - IVPUSH ONCE PRN NAUSEA AND/OR VOMITING Diphenhydramine HCl 12.5 mg 05/07/18 08:11 Benadryl Injection - IVPUSH ONCE PRN FOR ITCHING Diphenhydramine HCl 25 mg 05/07/18 12:37 Benadryl - PO Q6H PRN FOR ITCHING Docusate Sodium 100 mg 05/07/18 14:00 05/08/18 06:14 Colace - PO 100 mg TID NORY Administration Ferrous Sulfate 325 mg 05/08/18 10:00 05/08/18 09:44 Feosol - PO 325 mg DAILY NORY Administration Folic Acid 1 mg 05/08/18 10:00 05/08/18 09:44 Folic Acid - PO 1 mg DAILY NORY Administration Gabapentin 400 mg 05/08/18 10:00 05/08/18 09:44 Neurontin - PO 400 mg BID NORY Administration Heparin Sodium (Porcine) 5,000 unit 05/07/18 14:00 05/08/18 06:14 Heparin - SQ 5,000 unit TID NORY Administration Hydromorphone HCl 0 mg 05/07/18 08:15 05/08/18 04:48 Dilaudid Assortment Planner - DISC PAD GRINDING MACHINE FEEDER 05/14/18 08:11 10 mg DISC PAD GRINDING MACHINE FEEDER NORY Administration Protocol Cefazolin Sodium 1 gm in 50 mls @ 100 mls/hr 05/07/18 18:00 05/08/18 09:35 Ancef 1 Gm Premixed Ivpb - IVPB 100 mls/hr Q8H-IV NORY Administration Losartan Potassium 25 mg 05/08/18 10:00 05/08/18 09:44 Cozaar - PO 25 mg DAILY NORY Administration Mesalamine 1,600 mg 05/07/18 14:00 05/08/18 06:13 Asacol Hd - PO 1,600 mg TID NORY Administration Metoclopramide HCl 10 mg 05/08/18 08:20 05/08/18 08:34 Reglan Injection - IVPUSH 10 mg Q8H PRN Administration NAUSEA AND/OR VOMITING Pantoprazole Sodium 20 mg 05/07/18 22:00 05/08/18 09:44 Protonix - PO 20 mg BID NORY Administration Promethazine HCl 12.5 mg 05/07/18 08:11 Phenergan Injection - IVPB Q6H PRN NAUSEA AND/OR VOMITING Sertraline HCl 100 mg 05/08/18 10:00 05/08/18 09:44 Zoloft - PO 100 mg DAILY NORY Administration ASSESSMENT/PLAN: 62 y/o M POD 1 s/p L3-L5 laminectomies and interbody cage, arthrodesis with L3- L5 pedicle screws #POD 1 s/p L3-L5 laminectomies -advanced diet to regular -successfully ambulated w/ PT -dilaudid DISC PAD GRINDING MACHINE FEEDER for pain control -incentive spirometry -PT/OT -cleared for transfer to floors per NeuroSx -remainder of reccs as per NeuroSx #FEN -no IVF -monitor and replete lytes -regular diet #PPx -DVT: heparin subq -GI: protonix #code -full #dispo -transfer to med/surg Visit type - Emergency Visit Emergency Visit: No - New Patient This patient is new to me today: Yes Date on this admission: 05/08/18 - Critical Care Critical Care patient: Yes Total Critical Care Time (in minutes): 40 Critical Care Statement: The care of this patient involved high complexity decision making to prevent further life threatening deterioration of the patient 's condition and/or to evaluate & treat vital organ system(s) failure or risk of failure.
--- NOTE | 2018-05-08 16:43 | PN ---
Physical Exam: SUBJECTIVE: Patient seen and examined in ICU this afternoon. Feels better. Got out of bed without any issues. Fenton removed, no trouble urinating. Tolerating clears. Hasn't passed flatus or moved bowels. Denies numbness, tingling, chest pain, sob, cough, palpitation, abdominal pain, nausea or vomiting. No acute overnight events. OBJECTIVE: Vital Signs Period Temp Pulse Resp BP Sys/Maldonado Pulse Ox Last 24 Hr 97.9 F-98.8 F 56-82 14-20 104-142/59-92 98-98 GENERAL: Middle aged male, sitting in bed, patient is awake, alert, and fully oriented, in no acute distress. HEAD: Normal with no signs of trauma. EYES: EOM intact, no pallor or icterus. ENT: Ears normal, moist mucous membranes. NECK: Supple. LUNGS: Breath sounds equal, clear to auscultation bilaterally, no wheezes, no crackles, no accessory muscle use. HEART: Regular rate and rhythm, S1, S2 without murmur. ABDOMEN: Soft, nontender, no organomegaly. MUSCULOSKLETAL: dressing applied over the surgical site, THAD drain in place. EXTREMITIES: 2+ pulses, warm, well-perfused, no edema. NEUROLOGICAL: No facial droop. Normal speech, gait not observed. PSYCH: Normal mood, normal affect. SKIN: Warm, dry, normal turgor, no rashes or lesions noted Laboratory Results - last 24 hr 05/08/18 05/08/18 05:30 05:30 WBC 10.4 H RBC 3.91 L Hgb 11.7 Hct 35.8 MCV 91.4 MCH 30.0 MCHC 32.8 RDW 14.8 Plt Count 251 MPV 7.9 Sodium 132 L Potassium 4.7 Chloride 100 Carbon Dioxide 22 Anion Gap 10 BUN 19 H Creatinine 1.1 Creat Clearance w eGFR > 60 Random Glucose 107 H Calcium 8.8 Active Medications Generic Name Dose Route Start Last Admin Trade Name Freq PRN Reason Stop Dose Admin Acetaminophen 1,000 mg 05/08/18 08:30 Ofirmev Injection - IVPB Q6H PRN PAIN LEVEL 7 - 10 Amlodipine Besylate 10 mg 05/08/18 10:00 05/08/18 09:44 Norvasc - PO 10 mg DAILY NORY Administration Atenolol 50 mg 05/08/18 10:00 05/08/18 09:44 Tenormin - PO 50 mg DAILY NORY Administration Atorvastatin Calcium 20 mg 05/07/18 22:00 05/07/18 21:41 Lipitor - PO 20 mg HS NORY Administration Dexamethasone Sodium Phosphate 4 mg 05/07/18 08:11 Decadron Injection - IVPUSH ONCE PRN NAUSEA AND/OR VOMITING Diphenhydramine HCl 12.5 mg 05/07/18 08:11 Benadryl Injection - IVPUSH ONCE PRN FOR ITCHING Diphenhydramine HCl 25 mg 05/07/18 12:37 Benadryl - PO Q6H PRN FOR ITCHING Docusate Sodium 100 mg 05/07/18 14:00 05/08/18 14:09 Colace - PO 100 mg TID NORY Administration Ferrous Sulfate 325 mg 05/08/18 10:00 05/08/18 09:44 Feosol - PO 325 mg DAILY NORY Administration Folic Acid 1 mg 05/08/18 10:00 05/08/18 09:44 Folic Acid - PO 1 mg DAILY NORY Administration Gabapentin 400 mg 05/08/18 10:00 05/08/18 09:44 Neurontin - PO 400 mg BID NORY Administration Heparin Sodium (Porcine) 5,000 unit 05/07/18 14:00 05/08/18 14:08 Heparin - SQ 5,000 unit TID NORY Administration Hydromorphone HCl 0 mg 05/07/18 08:15 05/08/18 14:10 Dilaudid Tooling Specialist - APPLIED BEHAVIOR SPECIALIST 05/14/18 08:11 10 mg APPLIED BEHAVIOR SPECIALIST NORY Administration Protocol Cefazolin Sodium 1 gm in 50 mls @ 100 mls/hr 05/07/18 18:00 05/08/18 09:35 Ancef 1 Gm Premixed Ivpb - IVPB 100 mls/hr Q8H-IV NORY Administration Losartan Potassium 25 mg 05/08/18 10:00 05/08/18 09:44 Cozaar - PO 25 mg DAILY NORY Administration Mesalamine 1,600 mg 05/07/18 14:00 05/08/18 14:09 Asacol Hd - PO 1,600 mg TID NORY Administration Metoclopramide HCl 10 mg 05/08/18 08:20 05/08/18 08:34 Reglan Injection - IVPUSH 10 mg Q8H PRN Administration NAUSEA AND/OR VOMITING Pantoprazole Sodium 20 mg 05/07/18 22:00 05/08/18 09:44 Protonix - PO 20 mg BID NORY Administration Promethazine HCl 12.5 mg 05/07/18 08:11 Phenergan Injection - IVPB Q6H PRN NAUSEA AND/OR VOMITING Sertraline HCl 100 mg 05/08/18 10:00 05/08/18 09:44 Zoloft - PO 100 mg DAILY NORY Administration ASSESSMENT/PLAN: Patient is a 62 year old male presented to the hospital for an Elective surgery. # Chronic back pain with radiculopathy s/p L3-L5 laminectomies and interbody cage, arthrodesis with L3-L5 pedicle screws POD 1 Patient doing well after surgery, OOB, fenton discontinued, no problems urinating, advanced to regular diet ICU monitoring post op. Empirically treated with IV Cefazolin post surgery Heparin sq # HTN Continue Amlodipine 10 mg PO Daily # HLD Continue Atorvastatin 20 mg HS # FEN Can tolerate PO Electrolytes to be repeated in AM Sodium controlled diet. # Prophylaxis For DVT: On heparin sq For GI: Not indicated # Code Status: Full Code # Dispo: Can be transferred to Med-Surg. Illness, Investigation and plan of care explained to the patient. He verbalized understanding. Case discussed with Dr. Paez. Visit type - Emergency Visit Emergency Visit: Yes ED Registration Date: 05/07/18 Care time: The patient presented to the Emergency Department on the above date and was hospitalized for further evaluation of their emergent condition. - New Patient This patient is new to me today: No - Critical Care Critical Care patient: Yes Total Critical Care Time (in minutes): 35 Critical Care Statement: The care of this patient involved high complexity decision making to prevent further life threatening deterioration of the patient 's condition and/or to evaluate & treat vital organ system(s) failure or risk of failure. - Discharge Referral Referred to [facility] Med P.C.: No
--- NOTE | 2018-05-08 19:13 | PN ---
Teaching Attending Note Name of Resident: Annemarie Lee ATTENDING PHYSICIAN STATEMENT I saw and evaluated the patient. I reviewed the resident's note and discussed the case with the resident. I agree with the resident's findings and plan as documented. SUBJECTIVE: Patient has no complaints. No flatus or BM. Voiding without difficulty. OBJECTIVE: Vital Signs Period Temp Pulse Resp BP Sys/Maldonado Pulse Ox Last 24 Hr 98 F-98.8 F 58-82 14-22 109-142/62-89 98-98 HEART: S1S2, RRR LUNGS: Clear ABDOMEN: Obese, soft, non-tender, non-distended, normal BS EXTREMITIES: No edema Laboratory Results - last 24 hr 05/08/18 05/08/18 05:30 05:30 WBC 10.4 H RBC 3.91 L Hgb 11.7 Hct 35.8 MCV 91.4 MCH 30.0 MCHC 32.8 RDW 14.8 Plt Count 251 MPV 7.9 Sodium 132 L Potassium 4.7 Chloride 100 Carbon Dioxide 22 Anion Gap 10 BUN 19 H Creatinine 1.1 Creat Clearance w eGFR > 60 Random Glucose 107 H Calcium 8.8 Current Medications Generic Name Dose Route Start Last Admin Trade Name Freq PRN Reason Stop Dose Admin Acetaminophen 1,000 mg 05/08/18 08:30 Ofirmev Injection - IVPB Q6H PRN PAIN LEVEL 7 - 10 Amlodipine Besylate 10 mg 05/08/18 10:00 05/08/18 09:44 Norvasc - PO 10 mg DAILY NORY Administration Atenolol 50 mg 05/08/18 10:00 05/08/18 09:44 Tenormin - PO 50 mg DAILY NORY Administration Atorvastatin Calcium 20 mg 05/07/18 22:00 05/07/18 21:41 Lipitor - PO 20 mg HS NORY Administration Dexamethasone Sodium Phosphate 4 mg 05/07/18 08:11 Decadron Injection - IVPUSH ONCE PRN NAUSEA AND/OR VOMITING Diphenhydramine HCl 12.5 mg 05/07/18 08:11 Benadryl Injection - IVPUSH ONCE PRN FOR ITCHING Diphenhydramine HCl 25 mg 05/07/18 12:37 Benadryl - PO Q6H PRN FOR ITCHING Docusate Sodium 100 mg 05/07/18 14:00 05/08/18 14:09 Colace - PO 100 mg TID NORY Administration Ferrous Sulfate 325 mg 05/08/18 10:00 05/08/18 09:44 Feosol - PO 325 mg DAILY NORY Administration Folic Acid 1 mg 05/08/18 10:00 05/08/18 09:44 Folic Acid - PO 1 mg DAILY NORY Administration Gabapentin 400 mg 05/08/18 10:00 05/08/18 09:44 Neurontin - PO 400 mg BID NORY Administration Heparin Sodium (Porcine) 5,000 unit 05/07/18 14:00 05/08/18 14:08 Heparin - SQ 5,000 unit TID NORY Administration Hydromorphone HCl 0 mg 05/07/18 08:15 05/08/18 14:10 Dilaudid Hoisting Pile Driving Engineer - MANAGER AIR 05/14/18 08:11 10 mg MANAGER AIR NORY Administration Protocol Cefazolin Sodium 1 gm in 50 mls @ 100 mls/hr 05/07/18 18:00 05/08/18 17:43 Ancef 1 Gm Premixed Ivpb - IVPB 100 mls/hr Q8H-IV NORY Administration Losartan Potassium 25 mg 05/08/18 10:00 05/08/18 09:44 Cozaar - PO 25 mg DAILY NORY Administration Mesalamine 1,600 mg 05/07/18 14:00 05/08/18 14:09 Asacol Hd - PO 1,600 mg TID NORY Administration Metoclopramide HCl 10 mg 05/08/18 08:20 05/08/18 18:46 Reglan Injection - IVPUSH 10 mg Q8H PRN Administration NAUSEA AND/OR VOMITING Pantoprazole Sodium 20 mg 05/07/18 22:00 05/08/18 09:44 Protonix - PO 20 mg BID NORY Administration Promethazine HCl 12.5 mg 05/07/18 08:11 Phenergan Injection - IVPB Q6H PRN NAUSEA AND/OR VOMITING Sertraline HCl 100 mg 05/08/18 10:00 05/08/18 09:44 Zoloft - PO 100 mg DAILY NORY Administration ASSESSMENT AND PLAN: This is a 62 year old man with a history of HTN, hyperlipidemia who underwent lumbar spine surgery for radiculopathy. 1. Chronic low back pain with radiculopathy - s/p L3-L5 laminectomies and interbody cage, arthrodesis with L3-L5 pedicle screws 05/07 - Tolerating diet - Pain controlled 2. HTN - Continue Norvasc, Atenolol, Cozaar 3. Hyperlipidemia - Continue Lipitor
[2018-05-08] MEDS ORDERED: PT OWN MED DRAWER 7, Y5N ONE ×2 (21:18→21:40)
[2018-05-08] MEDS: ATORVASTATIN CA 20 MG TABLET (FP) PO SCH (21:38)
[2018-05-09] MEDS: CEFAZOLIN 1 GM/D5W 1 GM/50 ML BAG IVPB SCH ×3 (01:27→17:49)
[2018-05-09] MEDS ORDERED: PT OWN MED DRAWER 7, Y5N ONE (05:34)
[2018-05-09] MEDS: MESALAMINE 800 MG TABLET.DR PO SCH ×3 (05:37→21:13)
[2018-05-09] MEDS: DOCUSATE SODIUM 100 MG CAPSULE (FP) PO SCH ×3 (05:37→21:13)
[2018-05-09] MEDS: HEPARIN NA (PORCINE) 5,000 UNITS/ML 1ML VIAL SQ SCH ×3 (05:37→21:13)
[2018-05-09] MEDS: METOCLOPRAMIDE HCL INJECTION 10 MG/2 ML VIAL IVPUSH PRN (05:51)
[2018-05-09 06:04] LABS: BASO % 0.5 % (0-2.0); EOS % 2.4 % (0-4.5); HEMATOCRIT 29.5 % (35.4-49); HEMOGLOBIN 10.1 GM/dL (11.7-16.9); MCH 30.5 pg (25.7-33.7); MCHC 34.1 g/dl (32.0-35.9); MEAN CELL VOLUME 89.5 fl (80-96); MEAN PLT VOLUME 7.6 fl (7.5-11.1); MONO % 17.7 % (3.8-10.2); NEUT % 63.4 % (42.8-82.8); PLATELET COUNT 169 K/MM3 (134-434); RDW 13.9 % (11.9-15.9); WHITE BLOOD COUNT 6.6 K/mm3 (4.0-10.0)
[2018-05-09 07:18] LABS: ANION GAP 6 MMOL/L (8-16); BLOOD UREA NITROGEN 18 mg/dL (7-18); CALCIUM 8.1 mg/dL (8.5-10.1); CHLORIDE 100 mmol/L (98-107); CO2 26 mmol/L (21-32); CREATININE 1.1 mg/dL (0.55-1.3); GLUCOSE,RANDOM 95 mg/dL (74-106); PHOSPHOROUS 3.5 mg/dL (2.5-4.9); POTASSIUM 4.4 mmol/L (3.5-5.1); SODIUM 132 mmol/L (136-145)
[2018-05-09] MEDS ORDERED: HYDROmorphone *PCA* 10MG/50ML DISP.SYRIN PCA ONE (07:53)
--- NOTE | 2018-05-09 08:45 | PN ---
Physical Exam: SUBJECTIVE: Patient seen and examined at bedside. Resting comfortably, pain at surgical site. Urinating well, has passed flatus, no BM as yet. OBJECTIVE: Vital Signs Period Temp Pulse Resp BP Sys/Maldonado Pulse Ox Last 24 Hr 98 F-98.8 F 58-82 10- 95-142/62-84 98-98 GENERAL: A&Ox3, NAD HEAD: NC/AT EYES: PERRLA, EOMI ENT: MMM NECK: Trachea midline, full range of motion, supple. LUNGS: CTA b/l HEART: RRR no m/r/g ABDOMEN: +bs, soft, NT, ND EXTREMITIES: 2+ pulses, warm, well-perfused, no edema. NEUROLOGICAL: market research consultant, motor, sensory systems without focal deficit PSYCH: Normal mood, normal affect. SKIN: Warm, dry, normal turgor, no rashes or lesions noted Laboratory Results - last 24 hr 05/09/18 05/09/18 05:30 05:30 WBC 6.6 RBC 3.30 L Hgb 10.1 L Hct 29.5 L D MCV 89.5 MCH 30.5 MCHC 34.1 RDW 13.9 Plt Count 169 D MPV 7.6 Absolute Neuts (auto) 4.2 Neutrophils % 63.4 Lymphocytes % 16.0 Monocytes % 17.7 H Eosinophils % 2.4 Basophils % 0.5 Nucleated RBC % 0 Sodium 132 L Potassium 4.4 Chloride 100 Carbon Dioxide 26 Anion Gap 6 L BUN 18 Creatinine 1.1 Creat Clearance w eGFR > 60 Random Glucose 95 Calcium 8.1 L Phosphorus 3.5 Magnesium 2.0 Active Medications Generic Name Dose Route Start Last Admin Trade Name Yesi PRN Reason Stop Dose Admin Acetaminophen 1,000 mg 05/08/18 08:30 05/08/18 22:08 Ofirmev Injection - IVPB 1,000 mg Q6H PRN Administration PAIN LEVEL 7 - 10 Amlodipine Besylate 10 mg 05/08/18 10:00 05/08/18 09:44 Norvasc - PO 10 mg DAILY NORY Administration Atenolol 50 mg 05/08/18 10:00 05/08/18 09:44 Tenormin - PO 50 mg DAILY NORY Administration Atorvastatin Calcium 20 mg 05/07/18 22:00 05/08/18 21:38 Lipitor - PO 20 mg HS NORY Administration Dexamethasone Sodium Phosphate 4 mg 05/07/18 08:11 Decadron Injection - IVPUSH ONCE PRN NAUSEA AND/OR VOMITING Diphenhydramine HCl 12.5 mg 05/07/18 08:11 Benadryl Injection - IVPUSH ONCE PRN FOR ITCHING Diphenhydramine HCl 25 mg 05/07/18 12:37 Benadryl - PO Q6H PRN FOR ITCHING Docusate Sodium 100 mg 05/07/18 14:00 05/09/18 05:37 Colace - PO 100 mg TID NORY Administration Ferrous Sulfate 325 mg 05/08/18 10:00 05/08/18 09:44 Feosol - PO 325 mg DAILY NORY Administration Folic Acid 1 mg 05/08/18 10:00 05/08/18 09:44 Folic Acid - PO 1 mg DAILY NORY Administration Gabapentin 400 mg 05/08/18 10:00 05/08/18 21:38 Neurontin - PO 400 mg BID NORY Administration Heparin Sodium (Porcine) 5,000 unit 05/07/18 14:00 05/09/18 05:37 Heparin - SQ 5,000 unit TID NORY Administration Hydromorphone HCl 0 mg 05/07/18 08:15 05/08/18 14:10 Dilaudid Bee Breeder - MANAGER FORENSIC 05/14/18 08:11 10 mg MANAGER FORENSIC NORY Administration Protocol Cefazolin Sodium 1 gm in 50 mls @ 100 mls/hr 05/07/18 18:00 05/09/18 01:27 Ancef 1 Gm Premixed Ivpb - IVPB 100 mls/hr Q8H-IV NORY Administration Losartan Potassium 25 mg 05/08/18 10:00 05/08/18 09:44 Cozaar - PO 25 mg DAILY NORY Administration Mesalamine 1,600 mg 05/07/18 14:00 05/09/18 05:37 Asacol Hd - PO 1,600 mg TID NORY Administration Metoclopramide HCl 10 mg 05/08/18 08:20 05/09/18 05:51 Reglan Injection - IVPUSH 10 mg Q8H PRN Administration NAUSEA AND/OR VOMITING Pantoprazole Sodium 20 mg 05/07/18 22:00 05/08/18 21:37 Protonix - PO 20 mg BID NORY Administration Promethazine HCl 12.5 mg 12/20/18 08:11 Phenergan Injection - IVPB Q6H PRN NAUSEA AND/OR VOMITING Sertraline HCl 100 mg 05/08/18 10:00 05/08/18 09:44 Zoloft - PO 100 mg DAILY NORY Administration ASSESSMENT/PLAN: 62 y/o M POD 1 s/p L3-L5 laminectomies and interbody cage, arthrodesis with L3- L5 pedicle screws #POD 2 s/p L3-L5 laminectomies -on regular diet -successfully ambulated w/ PT -dilaudid MANAGER FORENSIC for pain control -incentive spirometry -PT/OT -cleared for transfer to floors per NeuroSx -remainder of reccs as per NeuroSx #FEN -no IVF -monitor and replete lytes -regular diet #PPx -DVT: heparin subq -GI: protonix, senna, colace #code -full #dispo -transfer to med/surg Visit type - Emergency Visit Emergency Visit: No - New Patient This patient is new to me today: No - Critical Care Critical Care patient: Yes Total Critical Care Time (in minutes): 40 Critical Care Statement: The care of this patient involved high complexity decision making to prevent further life threatening deterioration of the patient 's condition and/or to evaluate & treat vital organ system(s) failure or risk of failure.
[2018-05-09] MEDS: FERROUS SO4 325 MG TABLET (FP) PO SCH (10:00)
[2018-05-09] MEDS: SERTRALINE HCL 50 MG TABLET (FP) PO SCH (10:00)
[2018-05-09] MEDS: FOLIC ACID 1 MG TABLET (FP) PO SCH (10:00)
[2018-05-09] MEDS: GABAPENTIN 400 MG CAPSULE (FP) PO SCH ×2 (10:00→21:13)
[2018-05-09] MEDS: PANTOPRAZOLE 20 MG TABLET (FP) PO SCH ×2 (10:00→21:13)
[2018-05-09] MEDS ORDERED: oxyCODONE HCL 5 MG TABLET PO PRN (10:14)
--- NOTE | 2018-05-09 10:37 | PN ---
Teaching Attending Note Name of Resident: Jon Frederick ATTENDING PHYSICIAN STATEMENT I saw and evaluated the patient. I reviewed the resident's note and discussed the case with the resident. I agree with the resident's findings and plan as documented. SUBJECTIVE: Pt seen and examined in the ICU. States pain not controlled with current PERSONAL ASSISTANT settings. Tolerating PO. No fevers or chills. No shortness of breath or chest pain. OBJECTIVE: Vital Signs Period Temp Pulse Resp BP Sys/Maldonado Pulse Ox Last 24 Hr 98 F-98.8 F 58-80 03-09 95-142/62-84 98 Intake & Output 05/06/18 05/07/18 05/08/18 05/09/18 23:59 23:59 23:59 23:59 Intake Total 5920 2660 550 Output Total 1850 3850 3200 Balance 4070 -1190 -2650 Gen: NAD at rest Heart: RRR Lung: decreased breath sounds at the bases Abd: soft, nontender Ext: no edema Drain with serosanguinous fluid CBC, BMP 05/09/18 05:30 05/09/18 05:30 Active Medications Acetaminophen (Ofirmev Injection -) 1,000 mg IVPB Q6H PRN PRN Reason: PAIN LEVEL 7 - 10 Last Admin: 05/08/18 22:08 Dose: 1,000 mg Amlodipine Besylate (Norvasc -) 10 mg PO DAILY [facility] Last Admin: 05/08/18 09:44 Dose: 10 mg Atenolol (Tenormin -) 50 mg PO DAILY [facility] Last Admin: 05/08/18 09:44 Dose: 50 mg Atorvastatin Calcium (Lipitor -) 20 mg PO HS [facility] Last Admin: 05/08/18 21:38 Dose: 20 mg Dexamethasone Sodium Phosphate (Decadron Injection -) 4 mg IVPUSH ONCE PRN PRN Reason: NAUSEA AND/OR VOMITING Diphenhydramine HCl (Benadryl Injection -) 12.5 mg IVPUSH ONCE PRN PRN Reason: FOR ITCHING Diphenhydramine HCl (Benadryl -) 25 mg PO Q6H PRN PRN Reason: FOR ITCHING Docusate Sodium (Colace -) 100 mg PO TID [facility] Last Admin: 05/09/18 05:37 Dose: 100 mg Ferrous Sulfate (Feosol -) 325 mg PO DAILY [facility] Last Admin: 05/08/18 09:44 Dose: 325 mg Folic Acid (Folic Acid -) 1 mg PO DAILY [facility] Last Admin: 05/08/18 09:44 Dose: 1 mg Gabapentin (Neurontin -) 400 mg PO BID [facility] Last Admin: 05/08/18 21:38 Dose: 400 mg Heparin Sodium (Porcine) (Heparin -) 5,000 unit SQ TID [facility] Last Admin: 05/09/18 05:37 Dose: 5,000 unit Hydromorphone HCl (Dilaudid Supply Chain Director -) 10 mg PERSONAL ASSISTANT PERSONAL ASSISTANT [facility]; Protocol Stop: 05/14/18 09:59 Cefazolin Sodium (Ancef 1 Gm Premixed Ivpb -) 1 gm in 50 mls @ 100 mls/hr IVPB Q8H-IV [facility] Last Admin: 05/09/18 01:27 Dose: 100 mls/hr Losartan Potassium (Cozaar -) 25 mg PO DAILY [facility] Last Admin: 05/08/18 09:44 Dose: 25 mg Mesalamine (Asacol Hd -) 1,600 mg PO TID [facility] Last Admin: 05/09/18 05:37 Dose: 1,600 mg Metoclopramide HCl (Reglan Injection -) 10 mg IVPUSH Q8H PRN PRN Reason: NAUSEA AND/OR VOMITING Last Admin: 05/09/18 05:51 Dose: 10 mg Oxycodone HCl (Roxicodone -) 5 mg PO Q4H PRN PRN Reason: PAIN LEVEL 1-5 Oxycodone HCl (Roxicodone -) 10 mg PO Q4H PRN PRN Reason: PAIN LEVEL 6-10 Pantoprazole Sodium (Protonix -) 20 mg PO BID [facility] Last Admin: 05/08/18 21:37 Dose: 20 mg Promethazine HCl (Phenergan Injection -) 12.5 mg IVPB Q6H PRN PRN Reason: NAUSEA AND/OR VOMITING Senna (Senna -) 2 tab PO [facility] Sertraline HCl (Zoloft -) 100 mg PO DAILY [facility] Last Admin: 05/08/18 09:44 Dose: 100 mg ASSESSMENT AND PLAN: s/p L3-L5 Laminectomies/Interbody Cage/L3-L5 Pedicle Screws HTN Hyperlipidemia - adjusted pain regimen - incentive spirometry - bowel regimen - monitor drain output - empiric antibiotics - rehab/PT - PO as tolerated - DVT prophylaxis - can monitor on floor
[2018-05-09] MEDS: amLODIPine BESYLATE 10 MG TABLET (FP) PO SCH (10:48)
[2018-05-09] MEDS: LOSARTAN POTASSIUM 25 MG TABLET PO SCH (10:48)
[2018-05-09] MEDS: HYDROmorphone *PCA* 10MG/50ML DISP.SYRIN PCA SCH ×4 (10:48→20:05)
[2018-05-09] MEDS: ATENOLOL 50 MG TABLET (FP) PO SCH (10:49)
--- NOTE | 2018-05-09 10:55 | PN ---
Progress Note (short form) - Note Progress Note: POD #2 - s/p L3-L5 decompression/fusion under GA with dilaudid WATERPROOF BAG CUTTING MACHINE OPERATOR for postop pain management. VSS. Pt. still c/o of pain score of 7-8. Dilaudid WATERPROOF BAG CUTTING MACHINE OPERATOR dose increased to 0.3mg. PO meds ordered as well. Will follow.
--- NOTE | 2018-05-09 15:05 | PN ---
Physical Exam: SUBJECTIVE: Patient seen and examined. He was having increased back pain which has improved with increase in Dilaudid NNP. Still not passing flatus or having BMs. OBJECTIVE: Vital Signs Period Temp Pulse Resp BP Sys/Maldonado Pulse Ox Last 24 Hr 98 F-98.8 F 58-74 10 95-142/65-81 98-98 GENERAL: The patient is awake, alert, and fully oriented, in no acute distress. LUNGS: Breath sounds equal, clear to auscultation bilaterally, no wheezes, no crackles, no accessory muscle use. HEART: Regular rate and rhythm, S1, S2 without murmur, rub or gallop. ABDOMEN: Obese, soft, nontender, nondistended, normoactive bowel sounds, no guarding, no rebound, no hepatosplenomegaly, no masses. EXTREMITIES: 2+ pulses, warm, well-perfused, no edema. Laboratory Results - last 24 hr 05/09/18 05/09/18 05:30 05:30 WBC 6.6 RBC 3.30 L Hgb 10.1 L Hct 29.5 L D MCV 89.5 MCH 30.5 MCHC 34.1 RDW 13.9 Plt Count 169 D MPV 7.6 Absolute Neuts (auto) 4.2 Neutrophils % 63.4 Lymphocytes % 16.0 Monocytes % 17.7 H Eosinophils % 2.4 Basophils % 0.5 Nucleated RBC % 0 Sodium 132 L Potassium 4.4 Chloride 100 Carbon Dioxide 26 Anion Gap 6 L BUN 18 Creatinine 1.1 Creat Clearance w eGFR > 60 Random Glucose 95 Calcium 8.1 L Phosphorus 3.5 Magnesium 2.0 Active Medications Generic Name Dose Route Start Last Admin Trade Name Oliverioq PRN Reason Stop Dose Admin Acetaminophen 1,000 mg 05/08/18 08:30 05/08/18 22:08 Ofirmev Injection - IVPB 1,000 mg Q6H PRN Administration PAIN LEVEL 7 - 10 Amlodipine Besylate 10 mg 05/08/18 10:00 05/09/18 10:48 Norvasc - PO Not Given DAILY NORY Atenolol 50 mg 05/08/18 10:00 05/09/18 10:49 Tenormin - PO Not Given DAILY NORY Atorvastatin Calcium 20 mg 05/07/18 22:00 05/08/18 21:38 Lipitor - PO 20 mg HS NORY Administration Dexamethasone Sodium Phosphate 4 mg 05/07/18 08:11 Decadron Injection - IVPUSH ONCE PRN NAUSEA AND/OR VOMITING Diphenhydramine HCl 12.5 mg 05/07/18 08:11 Benadryl Injection - IVPUSH ONCE PRN FOR ITCHING Diphenhydramine HCl 25 mg 05/07/18 12:37 Benadryl - PO Q6H PRN FOR ITCHING Docusate Sodium 100 mg 05/07/18 14:00 05/09/18 05:37 Colace - PO 100 mg TID NOYR Administration Ferrous Sulfate 325 mg 05/08/18 10:00 05/09/18 10:00 Feosol - PO 325 mg DAILY NORY Administration Folic Acid 1 mg 05/08/18 10:00 05/09/18 10:00 Folic Acid - PO 1 mg DAILY NORY Administration Gabapentin 400 mg 05/08/18 10:00 05/09/18 10:00 Neurontin - PO 400 mg BID NORY Administration Heparin Sodium (Porcine) 5,000 unit 05/07/18 14:00 05/09/18 05:37 Heparin - SQ 5,000 unit TID NORY Administration Hydromorphone HCl 10 mg 05/09/18 10:00 05/09/18 10:48 Dilaudid Referral Manager - NNP 05/14/18 09:59 10 mg NNP NORY Administration Protocol Cefazolin Sodium 1 gm in 50 mls @ 100 mls/hr 05/07/18 18:00 05/09/18 10:00 Ancef 1 Gm Premixed Ivpb - IVPB 100 mls/hr Q8H-IV NORY Administration Losartan Potassium 25 mg 05/08/18 10:00 05/09/18 10:48 Cozaar - PO Not Given DAILY NORY Mesalamine 1,600 mg 05/07/18 14:00 05/09/18 05:37 Asacol Hd - PO 1,600 mg TID NORY Administration Metoclopramide HCl 10 mg 05/08/18 08:20 05/09/18 05:51 Reglan Injection - IVPUSH 10 mg Q8H PRN Administration NAUSEA AND/OR VOMITING Oxycodone HCl 5 mg 05/09/18 10:14 Roxicodone - PO Q4H PRN PAIN LEVEL 1-5 Oxycodone HCl 10 mg 05/09/18 10:15 Roxicodone - PO Q4H PRN PAIN LEVEL 6-10 Pantoprazole Sodium 20 mg 05/07/18 22:00 05/09/18 10:00 Protonix - PO 20 mg BID NORY Administration Promethazine HCl 12.5 mg 05/07/18 08:11 Phenergan Injection - IVPB Q6H PRN NAUSEA AND/OR VOMITING Senna 2 tab 05/09/18 22:00 Senna - PO HS NORY Sertraline HCl 100 mg 05/08/18 10:00 05/09/18 10:00 Zoloft - PO 100 mg DAILY NORY Administration ASSESSMENT/PLAN: This is a 62 year old man with a history of HTN, hyperlipidemia who underwent lumbar spine surgery for radiculopathy. 1. Chronic low back pain with radiculopathy - s/p L3-L5 laminectomies and interbody cage, arthrodesis with L3-L5 pedicle screws 05/07 - Tolerating diet - Pain controlled now with Dilaudid NNP - Ambulation 2. HTN - Continue Norvasc, Atenolol, Cozaar 3. Hyperlipidemia - Continue Lipitor 4. Obesity with BMI 36.6 Visit type - Emergency Visit Emergency Visit: No - New Patient This patient is new to me today: No - Critical Care Critical Care patient: No - Discharge Referral Referred to [facility] No
[2018-05-09] MEDS: SENNOSIDES 8.6MG TABLET (FP) PO SCH (21:13)
[2018-05-09] MEDS: ATORVASTATIN CA 20 MG TABLET (FP) PO SCH (21:13)
[2018-05-10] MEDS: CEFAZOLIN 1 GM/D5W 1 GM/50 ML BAG IVPB SCH ×3 (01:12→17:40)
[2018-05-10] MEDS: HEPARIN NA (PORCINE) 5,000 UNITS/ML 1ML VIAL SQ SCH ×3 (05:40→21:10)
[2018-05-10] MEDS: DOCUSATE SODIUM 100 MG CAPSULE (FP) PO SCH ×3 (05:41→21:10)
[2018-05-10] MEDS: MESALAMINE 800 MG TABLET.DR PO SCH ×3 (05:41→21:08)
[2018-05-10] MEDS ORDERED: PT OWN MED DRAWER 7, Y5N ONE ×4 (06:36→21:08)
[2018-05-10 07:12] LABS: BASO % 0.4 % (0-2.0); HEMATOCRIT 30.1 % (35.4-49); HEMOGLOBIN 10.3 GM/dL (11.7-16.9); LYMPH % 13.8 % (8-40); MCH 30.8 pg (25.7-33.7); MCHC 34.3 g/dl (32.0-35.9); MEAN CELL VOLUME 89.8 fl (80-96); MEAN PLT VOLUME 7.7 fl (7.5-11.1); MONO % 14.9 % (3.8-10.2); NEUT % 68.9 % (42.8-82.8); PLATELET COUNT 177 K/MM3 (134-434); RBC 3.36 M/mm3 (4.00-5.60); RDW 14.6 % (11.9-15.9)
[2018-05-10] MEDS: oxyCODONE HCL 5 MG TABLET PO PRN ×3 (07:53→21:06)
[2018-05-10 07:54] LABS: ANION GAP 8 MMOL/L (8-16); BLOOD UREA NITROGEN 15 mg/dL (7-18); CALCIUM 8.3 mg/dL (8.5-10.1); CHLORIDE 103 mmol/L (98-107); CO2 27 mmol/L (21-32); CREATININE 0.9 mg/dL (0.55-1.3); GLUCOSE,RANDOM 97 mg/dL (74-106); MAGNESIUM 2.1 mg/dL (1.8-2.4); PHOSPHOROUS 3.7 mg/dL (2.5-4.9); POTASSIUM 4.1 mmol/L (3.5-5.1); SODIUM 138 mmol/L (136-145)
[2018-05-10] MEDS: ATENOLOL 50 MG TABLET (FP) PO SCH (09:10)
[2018-05-10] MEDS: PANTOPRAZOLE 20 MG TABLET (FP) PO SCH ×2 (09:10→21:16)
[2018-05-10] MEDS: GABAPENTIN 400 MG CAPSULE (FP) PO SCH ×2 (09:10→21:14)
[2018-05-10] MEDS: FERROUS SO4 325 MG TABLET (FP) PO SCH (09:10)
[2018-05-10] MEDS: SERTRALINE HCL 50 MG TABLET (FP) PO SCH (09:10)
[2018-05-10] MEDS: FOLIC ACID 1 MG TABLET (FP) PO SCH (09:10)
[2018-05-10] MEDS: amLODIPine BESYLATE 10 MG TABLET (FP) PO SCH (09:10)
--- NOTE | 2018-05-10 09:16 | PN ---
Progress Note (short form) - Note Progress Note: Anesthesiology Pain Service POD#3 s/p Lumbar decompression and fusion under GA with post-op HISTORY FACULTY MEMBER. Pt. is awake and alert in bed, eating breakfast. While he does c/o some pain, he states that he would like to be able to get out of bed and move around a bit more. HISTORY FACULTY MEMBER use has decreased. VSS. 62 y.o. man with stable post-operative course on HISTORY FACULTY MEMBER. Will d/c HISTORY FACULTY MEMBER and pt. already has PO pain meds ordered. He and his RN are amenable to this plan. Continue care as per primary team.
[2018-05-10] MEDS: LOSARTAN POTASSIUM 25 MG TABLET PO SCH (09:17)
[2018-05-10] MEDS: ACETAMINOPHEN 325 MG TABLET (FP) PO PRN ×2 (17:39→21:06)
--- NOTE | 2018-05-10 18:20 | PN ---
Teaching Attending Note Name of Resident: Annemarie Lee ATTENDING PHYSICIAN STATEMENT I saw and evaluated the patient. I reviewed the resident's note and discussed the case with the resident. I agree with the resident's findings and plan as documented. SUBJECTIVE: Patient has intermittent back pain. OBJECTIVE: Vital Signs Period Temp Pulse Resp BP Sys/Maldonado Pulse Ox Last 24 Hr 97.9 F-99.5 F 69-81 18-18 108-139/63-75 95-96 GENERAL: The patient is awake, alert, and fully oriented, in no acute distress. LUNGS: Breath sounds equal, clear to auscultation bilaterally, no wheezes, no crackles, no accessory muscle use. HEART: Regular rate and rhythm, S1, S2 without murmur, rub or gallop. ABDOMEN: Obese, soft, nontender, nondistended, normoactive bowel sounds, no guarding, no rebound, no hepatosplenomegaly, no masses. EXTREMITIES: 2+ pulses, warm, well-perfused, no edema. Laboratory Results - last 24 hr 05/10/18 05/10/18 06:00 06:00 WBC 6.0 RBC 3.36 L Hgb 10.3 L Hct 30.1 L MCV 89.8 MCH 30.8 MCHC 34.3 RDW 14.6 Plt Count 177 MPV 7.7 Absolute Neuts (auto) 4.1 Neutrophils % 68.9 Lymphocytes % 13.8 Monocytes % 14.9 H Eosinophils % 2.0 Basophils % 0.4 Nucleated RBC % 0 Sodium 138 Potassium 4.1 Chloride 103 Carbon Dioxide 27 Anion Gap 8 BUN 15 Creatinine 0.9 Creat Clearance w eGFR > 60 Random Glucose 97 Calcium 8.3 L Phosphorus 3.7 Magnesium 2.1 Current Medications Generic Name Dose Route Start Last Admin Trade Name Freq PRN Reason Stop Dose Admin Acetaminophen 650 mg 05/10/18 17:21 05/10/18 17:39 Tylenol - PO 650 mg Q4H PRN Administration FEVER Amlodipine Besylate 10 mg 05/08/18 10:00 05/10/18 09:10 Norvasc - PO 10 mg DAILY NORY Administration Atenolol 50 mg 05/08/18 10:00 05/10/18 09:10 Tenormin - PO 50 mg DAILY NORY Administration Atorvastatin Calcium 20 mg 05/07/18 22:00 12/22/18 21:13 Lipitor - PO 20 mg HS NORY Administration Dexamethasone Sodium Phosphate 4 mg 05/07/18 08:11 Decadron Injection - IVPUSH ONCE PRN NAUSEA AND/OR VOMITING Diphenhydramine HCl 12.5 mg 05/07/18 08:11 Benadryl Injection - IVPUSH ONCE PRN FOR ITCHING Diphenhydramine HCl 25 mg 05/07/18 12:37 Benadryl - PO Q6H PRN FOR ITCHING Docusate Sodium 100 mg 05/07/18 14:00 05/10/18 14:20 Colace - PO 100 mg TID NORY Administration Ferrous Sulfate 325 mg 05/08/18 10:00 05/10/18 09:10 Feosol - PO 325 mg DAILY NORY Administration Folic Acid 1 mg 05/08/18 10:00 05/10/18 09:10 Folic Acid - PO 1 mg DAILY NORY Administration Gabapentin 400 mg 05/08/18 10:00 05/10/18 09:10 Neurontin - PO 400 mg BID NORY Administration Heparin Sodium (Porcine) 5,000 unit 05/07/18 14:00 05/10/18 14:12 Heparin - SQ 5,000 unit TID NORY Administration Cefazolin Sodium 1 gm in 50 mls @ 100 mls/hr 05/07/18 18:00 05/10/18 17:40 Ancef 1 Gm Premixed Ivpb - IVPB 100 mls/hr Q8H-IV NORY Administration Losartan Potassium 25 mg 05/08/18 10:00 05/10/18 09:17 Cozaar - PO 25 mg DAILY NORY Administration Mesalamine 1,600 mg 05/07/18 14:00 05/10/18 14:12 Asacol Hd - PO 1,600 mg TID NORY Administration Metoclopramide HCl 10 mg 05/08/18 08:20 05/09/18 05:51 Reglan Injection - IVPUSH 10 mg Q8H PRN Administration NAUSEA AND/OR VOMITING Oxycodone HCl 5 mg 05/09/18 10:14 Roxicodone - PO Q4H PRN PAIN LEVEL 1-5 Oxycodone HCl 10 mg 05/09/18 10:15 05/10/18 14:12 Roxicodone - PO 10 mg Q4H PRN Administration PAIN LEVEL 6-10 Pantoprazole Sodium 20 mg 05/07/18 22:00 05/10/18 09:10 Protonix - PO 20 mg BID NORY Administration Promethazine HCl 12.5 mg 05/07/18 08:11 Phenergan Injection - IVPB Q6H PRN NAUSEA AND/OR VOMITING Senna 2 tab 05/09/18 22:00 05/09/18 21:13 Senna - PO 2 tab HS NORY Administration Sertraline HCl 100 mg 05/08/18 10:00 05/10/18 09:10 Zoloft - PO 100 mg DAILY NORY Administration ASSESSMENT AND PLAN: This is a 62 year old man with a history of HTN, hyperlipidemia who underwent lumbar spine surgery for radiculopathy. 1. Chronic low back pain with radiculopathy - s/p L3-L5 laminectomies and interbody cage, arthrodesis with L3-L5 pedicle screws 05/07 - Tolerating diet - MILL WORK discontinued - Ambulation with walker, TLSO brace 2. HTN - Continue Norvasc, Atenolol, Cozaar 3. Hyperlipidemia - Continue Lipitor 4. Obesity with BMI 36.6 5. Disposition - Expect discharge tomorrow
--- NOTE | 2018-05-10 18:53 | PN ---
Physical Exam: SUBJECTIVE: Patient seen and examined at bed side this morning. ELEVATORS INSPECTOR discontinued. Pain well controlled on PO meds. Denies chest pain, sob, cough, palpitation, abdominal pain, nausea or vomiting. No acute overnight events. OBJECTIVE: Vital Signs Period Temp Pulse Resp BP Sys/Maldonado Pulse Ox Last 24 Hr 97.9 F-99.5 F 69-81 18-18 108-139/63-75 95-96 GENERAL: Middle aged male, sitting in bed, patient is awake, alert, and fully oriented, in no acute distress. HEAD: Normal with no signs of trauma. EYES: EOM intact, no pallor or icterus. ENT: Ears normal, moist mucous membranes. NECK: Supple. LUNGS: Breath sounds equal, clear to auscultation bilaterally, no wheezes, no crackles, no accessory muscle use. HEART: Regular rate and rhythm, S1, S2 without murmur. ABDOMEN: Soft, nontender, no organomegaly. MUSCULOSKLETAL: dressing applied over the surgical site, THAD drain in place. EXTREMITIES: 2+ pulses, warm, well-perfused, no edema. NEUROLOGICAL: No facial droop. Normal speech, gait not observed. PSYCH: Normal mood, normal affect. SKIN: Warm, dry, normal turgor, no rashes or lesions noted Laboratory Results - last 24 hr 05/10/18 05/10/18 06:00 06:00 WBC 6.0 RBC 3.36 L Hgb 10.3 L Hct 30.1 L MCV 89.8 MCH 30.8 MCHC 34.3 RDW 14.6 Plt Count 177 MPV 7.7 Absolute Neuts (auto) 4.1 Neutrophils % 68.9 Lymphocytes % 13.8 Monocytes % 14.9 H Eosinophils % 2.0 Basophils % 0.4 Nucleated RBC % 0 Sodium 138 Potassium 4.1 Chloride 103 Carbon Dioxide 27 Anion Gap 8 BUN 15 Creatinine 0.9 Creat Clearance w eGFR > 60 Random Glucose 97 Calcium 8.3 L Phosphorus 3.7 Magnesium 2.1 Active Medications Generic Name Dose Route Start Last Admin Trade Name Freq PRN Reason Stop Dose Admin Acetaminophen 650 mg 05/10/18 17:21 05/10/18 17:39 Tylenol - PO 650 mg Q4H PRN Administration FEVER Amlodipine Besylate 10 mg 05/08/18 10:00 05/10/18 09:10 Norvasc - PO 10 mg DAILY NORY Administration Atenolol 50 mg 05/08/18 10:00 05/10/18 09:10 Tenormin - PO 50 mg DAILY NORY Administration Atorvastatin Calcium 20 mg 05/07/18 22:00 05/09/18 21:13 Lipitor - PO 20 mg HS NORY Administration Dexamethasone Sodium Phosphate 4 mg 05/07/18 08:11 Decadron Injection - IVPUSH ONCE PRN NAUSEA AND/OR VOMITING Diphenhydramine HCl 12.5 mg 05/07/18 08:11 Benadryl Injection - IVPUSH ONCE PRN FOR ITCHING Diphenhydramine HCl 25 mg 05/07/18 12:37 Benadryl - PO Q6H PRN FOR ITCHING Docusate Sodium 100 mg 05/07/18 14:00 05/10/18 14:20 Colace - PO 100 mg TID NORY Administration Ferrous Sulfate 325 mg 05/08/18 10:00 05/10/18 09:10 Feosol - PO 325 mg DAILY NORY Administration Folic Acid 1 mg 05/08/18 10:00 05/10/18 09:10 Folic Acid - PO 1 mg DAILY NORY Administration Gabapentin 400 mg 05/08/18 10:00 05/10/18 09:10 Neurontin - PO 400 mg BID NORY Administration Heparin Sodium (Porcine) 5,000 unit 05/07/18 14:00 05/10/18 14:12 Heparin - SQ 5,000 unit TID NORY Administration Cefazolin Sodium 1 gm in 50 mls @ 100 mls/hr 05/07/18 18:00 05/10/18 17:40 Ancef 1 Gm Premixed Ivpb - IVPB 100 mls/hr Q8H-IV NORY Administration Losartan Potassium 25 mg 05/08/18 10:00 05/10/18 09:17 Cozaar - PO 25 mg DAILY NORY Administration Mesalamine 1,600 mg 05/07/18 14:00 05/10/18 14:12 Asacol Hd - PO 1,600 mg TID NORY Administration Metoclopramide HCl 10 mg 05/08/18 08:20 05/09/18 05:51 Reglan Injection - IVPUSH 10 mg Q8H PRN Administration NAUSEA AND/OR VOMITING Oxycodone HCl 5 mg 05/09/18 10:14 Roxicodone - PO Q4H PRN PAIN LEVEL 1-5 Oxycodone HCl 10 mg 05/09/18 10:15 05/10/18 14:12 Roxicodone - PO 10 mg Q4H PRN Administration PAIN LEVEL 6-10 Pantoprazole Sodium 20 mg 05/07/18 22:00 05/10/18 09:10 Protonix - PO 20 mg BID NORY Administration Promethazine HCl 12.5 mg 05/07/18 08:11 Phenergan Injection - IVPB Q6H PRN NAUSEA AND/OR VOMITING Senna 2 tab 05/09/18 22:00 05/09/18 21:13 Senna - PO 2 tab HS NORY Administration Sertraline HCl 100 mg 05/08/18 10:00 05/10/18 09:10 Zoloft - PO 100 mg DAILY NORY Administration ASSESSMENT/PLAN: Patient is a 62 year old male presented to the hospital for an Elective surgery. # Chronic back pain with radiculopathy s/p L3-L5 laminectomies and interbody cage, arthrodesis with L3-L5 pedicle screws POD 3 Patient doing well after surgery, OOB, ELEVATORS INSPECTOR discontinued today. ON Oxy 5mg and 10mg Q4H PRN. Tylenol 650 mg PO Q6H PRN Empirically treated with IV Cefazolin post surgery Heparin sq # HTN Continue Amlodipine 10 mg PO Daily # HLD Continue Atorvastatin 20 mg HS # FEN Can tolerate PO Electrolytes to be repeated in AM Sodium controlled diet. # Prophylaxis For DVT: On heparin sq For GI: Not indicated # Code Status: Full Code # Dispo: Monitor in Med-surg. Discharge as per surgeon. Illness, Investigation and plan of care explained to the patient. He verbalized understanding. Case discussed with Dr. Paez. Visit type - Emergency Visit Emergency Visit: Yes ED Registration Date: 05/07/18 Care time: The patient presented to the Emergency Department on the above date and was hospitalized for further evaluation of their emergent condition. - New Patient This patient is new to me today: No - Critical Care Critical Care patient: No - Discharge Referral Referred to [facility] No
[2018-05-10] MEDS: ATORVASTATIN CA 20 MG TABLET (FP) PO SCH (21:13)
[2018-05-10] MEDS: SENNOSIDES 8.6MG TABLET (FP) PO SCH (21:16)
[2018-05-11] MEDS: CEFAZOLIN 1 GM/D5W 1 GM/50 ML BAG IVPB SCH ×3 (01:18→18:53)
[2018-05-11] MEDS: oxyCODONE HCL 5 MG TABLET PO PRN ×2 (01:21→05:30)
[2018-05-11] MEDS ORDERED: PT OWN MED DRAWER 7, Y5N ONE ×2 (05:23→14:45)
[2018-05-11] MEDS: MESALAMINE 800 MG TABLET.DR PO SCH ×2 (05:26→14:45)
[2018-05-11] MEDS: DOCUSATE SODIUM 100 MG CAPSULE (FP) PO SCH ×2 (05:27→14:46)
[2018-05-11] MEDS: HEPARIN NA (PORCINE) 5,000 UNITS/ML 1ML VIAL SQ SCH ×2 (05:27→14:46)
--- NOTE | 2018-05-11 07:40 | PN ---
Progress Note (short form) - Note Progress Note: Surgery POD#4 L3-L5 laminectomies, interbody cage-arthrodesis with L3-L5 pedicle screws , patient seen and examined at bedside. Patient states he is feeling well overall, however, since his FUR EXAMINER was stopped yesterday, he has significant pain with movement. Although he denies being treated by a pain management doctor prior to surgery, he was taking percocet intermittently for his knee pain which may have lead to tolerance to oxycodone requiring higher doses post operatively. He has been OOB and ambulating with brace and his walker. He is tolerating a regular diet and voiding and moving his bowels. He denies any CP, SOB, N/V, Fever, chills or new/worsening radicular symptoms. Vital Signs Temp 98.7 F 05/11/18 06:00 Pulse 58 L 05/11/18 06:00 Resp 20 05/11/18 06:00 BP 121/65 05/11/18 06:00 Pulse Ox 96 05/10/18 09:00 Intake & Output 05/10/18 05/10/18 05/11/18 11:59 23:59 11:59 Intake Total 760 Output Total 160 750 300 Balance -160 10 -300 Intake: Oral 760 Output: Drainage 160 150 Lower Back 160 150 Urine 600 300 Void 600 300 Other: Voiding Method Urinal Urinal Bowel Movement Yes No # Bowel Movements 1 CBC, BMP 05/10/18 06:00 05/10/18 06:00 PE: A&Ox3, NAD Unlabored resp on RA Lumbar spine: incision c/d/i with vernell in situ, surrounding tissue intact with no tracking erythema, edema evidence of collection or d/c, Drain securely in place with SS d/c- 150cc/24hrs. B/L LE compartment soft, supple and non-tender with +2 DP pulses. NVID with 5/5 dorsi/plantar flexion b/l. 4/5 b/l SLR some pain blocking appropriate to status. Problem List - Problems (1) S/P lumbar fusion Assessment/Plan: POD #4 L3-L5 fusion doing well. 1) Will add OxyContin to pain regime and d/c as discussed with Dr Paez 2) Re-assess drain output later this morning, likely d/c pending output 3) OOB with TLSO and walker-up to chair for meals 4) DVT prophylaxis with scds and SQ heparin 5) d/c planning for home today pending pain control and drain d/c Code(s): Z98.1 - ARTHRODESIS STATUS
[2018-05-11] MEDS ORDERED: oxyCODONE HCL 10 MG SUSTAINED ACTING TABLET PO SCH (10:00)
[2018-05-11] MEDS: amLODIPine BESYLATE 10 MG TABLET (FP) PO SCH (10:34)
[2018-05-11] MEDS: PANTOPRAZOLE 20 MG TABLET (FP) PO SCH (10:34)
[2018-05-11] MEDS: SERTRALINE HCL 50 MG TABLET (FP) PO SCH (10:34)
[2018-05-11] MEDS: LOSARTAN POTASSIUM 25 MG TABLET PO SCH (10:34)
[2018-05-11] MEDS: GABAPENTIN 400 MG CAPSULE (FP) PO SCH (10:34)
[2018-05-11] MEDS: ATENOLOL 50 MG TABLET (FP) PO SCH (10:52)
[2018-05-11] MEDS: FERROUS SO4 325 MG TABLET (FP) PO SCH (11:27)
[2018-05-11] MEDS: FOLIC ACID 1 MG TABLET (FP) PO SCH (11:27)
--- NOTE | 2018-05-11 14:45 | DS ---
"Physical Exam: SUBJECTIVE: Patient seen and examined OBJECTIVE: Vital Signs Period Temp Pulse Resp BP Sys/Maldonado Pulse Ox Last 24 Hr 98.7 F-99.4 F 58-64 20-20 117-124/65-67 PHYSICAL EXAM GENERAL: The patient is awake, alert, and fully oriented, in no acute distress. HEAD: Normal with no signs of trauma. EYES: PERRL, extraocular movements intact, sclera anicteric, conjunctiva clear. ENT: Ears normal, nares patent, oropharynx clear without exudates, moist mucous membranes. NECK: Trachea midline, full range of motion, supple. LUNGS: Breath sounds equal, clear to auscultation bilaterally, no wheezes, no crackles, no accessory muscle use. HEART: Regular rate and rhythm, S1, S2 without murmur, rub or gallop. ABDOMEN: Soft, nontender, nondistended, normoactive bowel sounds, no guarding, no rebound, no hepatosplenomegaly, no masses. EXTREMITIES: 2+ pulses, warm, well-perfused, no edema. NEUROLOGICAL: Cranial nerves II through XII grossly intact. Normal speech, gait not observed. PSYCH: Normal mood, normal affect. SKIN: Warm, dry, normal turgor, no rashes or lesions noted. LABS HOSPITAL COURSE: Date of Admission:05/07/18 Date of Discharge: 05/11/18 Minutes to complete discharge: 30 Discharge Summary Reason For Visit: STENOSIS AND INSTABILITY Current Active Problems S/P lumbar fusion (Acute) Chronic radicular low back pain (Chronic) Hyperlipidemia (Chronic) Hypertension (Chronic) Obesity (BMI 30-39.9) (Chronic) Condition: Stable - Instructions Diet, Activity, Other Instructions: Dr. Watson's Post Operative Instructions Physical Activity Resume your normal everyday activity as tolerated. No heavy lifting or exercise until seen by your surgeon. You may walk unlimited amounts and climb stairs. You may resume driving the car when you feel safe and comfortable behind the wheel and you are no longer wearing your brace. Do not operate a vehicle while taking narcotic medication. Brace Wear TLSO Brace whenever out of bed. May remove to sleep and shower. Wound Care Keep your incision clean, dry and covered at all times. Apply an occlusive dressing (Saran wrap or Tegaderm) when showering to avoid getting your incision wet. Do not submerge incision or apply ointments or creams. The vernell will be removed in the office in 10-14 days post-op. Diet There are no dietary restrictions. Eat healthy, high-fiber foods. Drink 6-8 glasses of liquid each day. This will assist in keeping your bowels regular. Pain Management You may take Tylenol or acetaminophen. Any pain prescription* medication ordered should be taken as prescribed for moderate to severe pain. * [place] OFFICE CLERK ASSISTANT checked prior to escribe of narcotics for pain management This report was requested by: Terry Titus | Reference #: [id number] 05/06/2018 Oxycodone-acetaminophen 5-325 mg. 100 Tablets by Deon Hernandez MD You should take Valium 5 mg twice a day for the next 3 days for muscle spasm. A prescription has been sent to [facility] [place]. Call Dr Palacios for any of the following: Severe pain not relieved by medication Fever of 101 or higher Excessive bleeding or drainage on dressing Inability to urinate Any chest pain or shortness of breath, seek Emergency Care. Call the office to confirm a post-operative appointment for 2-3 weeks post-op Nikos Watson MD [facility] [address] [place] [address] Disposition: HOME - Home Medications Comprehensive Discharge Medication List: Ambulatory Orders Amlodipine Besylate 10 mg PO DAILY 05/04/18 Atenolol [Tenormin -] 50 mg PO DAILY 05/04/18 Atorvastatin Ca [Lipitor] 20 mg PO HS 05/04/18 Losartan Potassium 25 mg PO DAILY 05/04/18 Mesalamine [Asacol HD -] 1,600 mg PO TID 05/04/18 Omeprazole 20 mg PO BID 05/04/18 Sertraline HCl 100 mg PO DAILY 05/04/18 Diazepam [Valium] 1 tab PO BID #6 tablet MDD 2 tabs 05/11/18 - Discharge Referral Referred to [facility] No"
--- NOTE | 2018-05-11 14:49 | PN ---
Progress Note (short form) - Note Progress Note: surgery THAD drain removed with tip fully intact and 75cc of SS drainage in bulb. Pressure dressing applied with no active d/c at ostomy site. Surrounding tissue intact. Patient tolerated the procedure well. d/c home today Problem List - Problems (1) S/P lumbar fusion Code(s): Z98.1 - ARTHRODESIS STATUS
[2018-05-11 17:26] VITALS: BP 120/78; PULSE 70; TEMP 98.2
== END 2018-05-11 20:07 | disposition home or self-care (01) | DRG 460 ==
LOC: JSAMEDAYSX 05-07 06:09 → JICU 05-07 17:27 → J8W 05-09 12:09
PROVIDERS: ADMIT Internal Medicine; ATTEND Internal Medicine
PROC: 01NB0ZZ Release Lumbar Nerve, Open Approach (ICD-10-PCS; 2018-05-07)
PROC: 0SB20ZZ Excision of Lumbar Vertebral Disc, Open Approach (ICD-10-PCS; 2018-05-07)
PROC: 0JX70ZB Transfer Back Subcutaneous Tissue and Fascia with Skin and Subcutaneous Tissue, Open Approach (ICD-10-PCS; 2018-05-07)
PROC: B01BZZZ Fluoroscopy of Spinal Cord (ICD-10-PCS; 2018-05-07)
PROC: 0SG10AJ Fusion of 2 or more Lumbar Vertebral Joints with Interbody Fusion Device, Posterior Approach, Anterior Column, Open Approach (ICD-10-PCS; principal; 2018-05-07 08:00)
DX: M51.16 Intervertebral disc disorders with radiculopathy, lumbar region (principal); M48.061 Spinal stenosis, lumbar region without neurogenic claudication; E78.5 Hyperlipidemia, unspecified; I10 Essential (primary) hypertension; E66.9 Obesity, unspecified; Z68.36 Body mass index [BMI] 36.0-36.9, adult
CPT/HCPCS: 36415; 72131-TC; 76000-TC-FY; 80048; 83735; 84100; 85025; 85027; 86850; 86900; 86901; 94010; 94760; 97116-GP; 97162-GP; J0131; J1644

== ENCOUNTER 2023-06-30 08:00 | Inpatient (IN) | payer OTHER ==
[2023-06-26 15:03] VITALS: BMI 37.9
[2023-06-30] MEDS: VANCOMYCIN 1 GM in NS (PRE-DOCKED) 1,000 MG/250 ML (RESTRICTED TO ID ONLY) IVPB ONE ×2 (08:30→08:46)
[2023-06-30] MEDS: ceFAZolin SODIUM 1 GM VIAL IVPB ONE ×2 (08:30→08:36)
[2023-06-30] MEDS: LIDOCAINE 1%/EPI 1:100000 (20 ML MULTI DOSE VIAL) IJ ONE (08:41)
[2023-06-30] MEDS: THROMBIN (BOVINE) 5,000 UNIT VIAL TP ONE ×2 (09:30→10:02)
[2023-06-30] MEDS: GENTAMICIN SO4 80 MG/2 ML VIAL IVPB ONE (10:02)
[2023-06-30] MEDS: HYDROGEN PEROXIDE 473 ML PO ONE (10:03)
[2023-06-30] MEDS ORDERED: ONDANSETRON 4 MG/2 ML VIAL IVPUSH PRN ×2 (11:27→11:53)
[2023-06-30] MEDS: ACETAMINOPHEN 1000 MG/100 ML BAG IVPB ONE (11:46)
[2023-06-30] MEDS ORDERED: diphenhydrAMINE HCL 25 MG CAPSULE (FP) PO PRN (11:53)
[2023-06-30] MEDS ORDERED: LACTATED RINGERS SOLUTION 1,000 ML/1,000 ML INFUS.BAG IV SCH (12:00)
[2023-06-30] MEDS: HYDROmorphone *PCA* 10MG/50ML DISP.SYRIN PCA SCH (12:24)
[2023-06-30] MEDS: LACTATED RINGERS SOLUTION 1,000 ML IV SCH (14:24)
[2023-06-30] MEDS: DOCUSATE SODIUM 100 MG CAPSULE (FP) PO SCH (16:30)
[2023-06-30] MEDS: CEFAZOLIN 1 GM in DEXTROSE 5%-WATER - 50 ML IVPB SCH (16:31)
[2023-06-30] MEDS: ACETAMINOPHEN 1000 MG/100 ML BAG IVPB SCH (17:34)
[2023-06-30] MEDS: CYCLOBENZAPRINE HCL 10 MG TABLET (FP) PO PRN (19:14)
[2023-06-30] MEDS: GABAPENTIN 300 MG CAPSULE PO SCH (21:26)
[2023-06-30] MEDS: HEPARIN NA (PORCINE) 5,000 UNITS/ML 1ML VIAL SQ SCH (21:26)
[2023-07-01 08:48] LABS: HEMATOCRIT 35.6 % (35.4-49); HEMOGLOBIN 12.2 GM/dL (11.7-16.9); MCHC 34.3 g/dl (32.0-35.9); MEAN CELL VOLUME 93.2 fl (80-96); PLATELET COUNT 220 10^3/uL (134-434); RBC 3.82 M/mm3 (4.00-5.60); RDW 13.9 % (11.9-15.9); WHITE BLOOD COUNT 8.3 K/mm3 (4.0-10.0)
[2023-07-01 09:03] LABS: POTASSIUM 4.5 mmol/L (3.5-5.1)
[2023-07-01 09:08] LABS: CALCIUM 8.9 mg/dL (8.5-10.1)
[2023-07-01 09:09] LABS: BLOOD UREA NITROGEN 18.2 mg/dL (7-18)
[2023-07-01 09:11] LABS: CREATININE 0.7 mg/dL (0.55-1.3)
[2023-07-01] MEDS: ATORVASTATIN CA 20 MG TABLET (FP) PO SCH (09:25)
[2023-07-01] MEDS: ATENOLOL 50 MG TABLET (FP) PO SCH (09:25)
[2023-07-01] MEDS: PANTOPRAZOLE 20 MG TABLET PO SCH (09:25)
[2023-07-01] MEDS: LOSARTAN POTASSIUM 25 MG TABLET PO SCH (09:25)
[2023-07-01] MEDS: SERTRALINE HCL 50 MG TABLET (FP) PO SCH (09:25)
[2023-07-01] MEDS: amLODIPine BESYLATE 10 MG TABLET (FP) PO SCH (09:25)
[2023-07-01] MEDS ORDERED: oxyCODONE HCL 5 MG TABLET PO PRN (10:22)
[2023-07-01] MEDS: oxyCODONE HCL 5 MG TABLET PO PRN (13:05)
[2023-07-01] MEDS: ACETAMINOPHEN 500 MG TABLET (FP) PO SCH (17:21)
[2023-07-01 19:38] VITALS: RESP 20
[2023-07-02 09:57] LABS: BASO % 0.5 % (0-2.0); EOS % 2.6 % (0-4.5); HEMATOCRIT 37.3 % (35.4-49); HEMOGLOBIN 13.2 GM/dL (11.7-16.9); LYMPH % 16.2 % (8-40); MCH 32.6 pg (25.7-33.7); MCHC 35.5 g/dl (32.0-35.9); MEAN CELL VOLUME 91.8 fl (80-96); MEAN PLT VOLUME 8.1 fl (7.5-11.1); NEUT % 68.7 % (42.8-82.8); PLATELET COUNT 205 10^3/uL (134-434); RBC 4.07 M/mm3 (4.00-5.60); RDW 13.9 % (11.9-15.9); WHITE BLOOD COUNT 6.2 K/mm3 (4.0-10.0)
[2023-07-02 10:16] LABS: POTASSIUM 4.5 mmol/L (3.5-5.1)
[2023-07-02 10:19] LABS: ALBUMIN 3.7 g/dl (3.4-5.0); BLOOD UREA NITROGEN 16.2 mg/dL (7-18); CALCIUM 8.8 mg/dL (8.5-10.1)
[2023-07-02 10:22] LABS: CREATININE 0.8 mg/dL (0.55-1.3)
[2023-07-02 10:24] LABS: BILIRUBIN,TOTAL 0.6 mg/dL (0.2-1); TOT PROT 6.7 g/dl (6.4-8.2)
[2023-07-02 14:18] VITALS: BP 181/68; PULSE 74; TEMP 98.8
== END 2023-07-02 14:32 | disposition home or self-care (01) | DRG 473 ==
LOC: J8W 14:05 → J2C 14:17 → J8W 14:20
PROVIDERS: ADMIT Neurological Surgery; ATTEND Nurse Practitioner Family
PROC: 00NW0ZZ Release Cervical Spinal Cord, Open Approach (ICD-10-PCS; 2023-06-30)
PROC: 4A11X4G Monitoring of Peripheral Nervous Electrical Activity, Intraoperative, External Approach (ICD-10-PCS; 2023-06-30)
PROC: 0RG20A0 Fusion of 2 or more Cervical Vertebral Joints with Interbody Fusion Device, Anterior Approach, Anterior Column, Open Approach (ICD-10-PCS; principal; 2023-06-30 08:00)
DX: M47.812 Spondylosis without myelopathy or radiculopathy, cervical region (principal); E78.5 Hyperlipidemia, unspecified; I10 Essential (primary) hypertension; E66.9 Obesity, unspecified; Z68.38 Body mass index [BMI] 38.0-38.9, adult
CPT/HCPCS: 36415; 72125-TC; 76000-TC-FY; 80048; 80053; 85025; 85027; 86850; 86900; 86901; 94760; 97116-GP; 97161-GP; C1713; J0131; J1644